=== PATIENT | female | born 1940 | race Caucasian/White ===

== ENCOUNTER 2017-11-22 21:18 | Inpatient (IN) ==
[2017-11-22 22:05] LABS: Bilirubin,Urine Negative (Negative); Blood,Urine Negative (Negative); Clarity,Urine Clear (Clear); Color,Urine Yellow (Yellow); Glucose,Urine (UA) Normal (Normal); Ketones,Urine >=160 mg/dL (Negative); Leukocyte Esterase,Urine Small (Negative); Nitrite,Urine Negative (Negative); Protein,Urine Negative (Neg-Trace); Specific Gravity,Urine 1.017 (1.010-1.025); Urobilinogen,Urine Normal (Normal)
[2017-11-22 22:08] LABS: Bacteria,Urine None Seen per hpf (None-Few); Hyaline Casts,Urine None Seen per lpf (None-Few); Squamous Epithelial Cell,Urine Few per lpf (None-Few); WBC,Urine 0-3 per hpf (0-3)
[2017-11-22 22:52] LABS: Basophils % 0.3 %; Hematocrit 41.5 % (35.3-44.9); Hemoglobin 13.8 g/dL (11.5-15.4); Immature Granulocytes % 0.3 % (0-4); Lymphocytes # 0.9 K/mcL (0.6-4.6); Mean Corpuscular HGB Conc 33.3 g/dL (31.6-35.5); Mean Corpuscular Hemoglobin 29.6 pg (28.0-33.3); Mean Corpuscular Volume 89.1 fL (83.0-100.0); Monocytes # 0.6 K/mcL (0.0-1.3); Monocytes % 5.1 %; Neutrophils # 10.1 K/mcL (1.6-8.9); Platelet Count 162 K/mcL (140-400); Red Blood Count 4.66 M/mcL (3.82-4.97); Red Cell Distribution Width 12.5 % (11.5-14.5); Segmented Neutrophils % 86.3 %
[2017-11-22 23:15] LABS: Alanine Aminotransferase 13 Units/L (7-52); Albumin 4.6 g/dL (3.5-5.7); Albumin/Globulin Ratio 1.5 (1.1-2.2); Alkaline Phosphatase 97 Units/L (34-104); Amylase 37 Units/L (29-103); Aspartate Amino Transferase 19 Units/L (13-39); BUN/Creatinine Ratio 20 (6-26); Bilirubin,Direct 0.1 mg/dL (0.0-0.2); Bilirubin,Indirect 0.6 mg/dL (0.0-1.2); Bilirubin,Total 0.7 mg/dL (0.3-1.0); Blood Urea Nitrogen 13 mg/dL (8-23); Calcium 10.3 mg/dL (8.6-10.3); Carbon Dioxide 25 mEq/L (23-29); Chloride 102 mEq/L (98-107); Globulin 3.1 g/dL (2.4-3.5); Glucose 124 mg/dL (70-105); Lipase 11 Units/L (11-82); Osmolality,Calculated 284 (280-300); Potassium 3.9 mEq/L (3.5-5.1); Sodium 136 mEq/L (136-145); Total Protein 7.7 g/dL (6.4-8.9); eGFR For Non-African Americans > 60 (> 60)
--- NOTE | 2017-11-22 23:49 | Emergency Department Note ---
Disposition Clinical Impression: Appendicitis, acute Qualifiers: Acute appendicitis type: unspecified acute appendicitis type Qualified Code(s) : K35.80 - Unspecified acute appendicitis Disposition: Admitted As Inpatient General Adult HPI - General Chief complaint: ED Abdominal Pain Stated complaint: ab pain Time Seen by Provider: 11/22/17 23:24 Source: patient Mode of arrival: private vehicle Limitations: no limitations Nursing Notes Reviewed: Yes Vital Signs Reviewed: Yes - History of Present Illness HPI Narrative: This is a 77-year-old female with past medical history including ulcerative colitis that is not active, cholelithiasis, presenting with a chief complaint of right-sided abdominal pain. Patient states she woke up generally not feeling well. After lunch today she started feeling nauseous, but no vomiting. Approximately 8 hours ago she developed right flank pain that is sharp and worsens with movement. Throughout the day it is been gradually getting worse and now radiates into the right lower quadrant and down her right groin. She denies dysuria, hematuria, abnormal bowel movements, chest pain, shortness breath. She has never experienced this pain before. Pain Scale: 8 - Related Data Allergies Allergy/AdvReac Type Severity Reaction Status Date / Time No Known Allergies Allergy Verified 11/22/17 21:44 All systems ED: reviewed and negative except as stated. Review of Systems: As Per HPI Constitutional: Reports: chills. Denies: fever Eyes: Denies: vision change ENT ED: Denies: throat pain, congestion Cardiovascular: Denies: chest pain, palpitations Respiratory: Denies: cough, dyspnea, wheezes Gastrointestinal: Reports: abdominal pain, nausea. Denies: vomiting, diarrhea, constipation Genitourinary: Denies: urgency, dysuria, frequency, hematuria, discharge Integumentary: Denies: rash Neurological: Denies: headache, weakness Allergic/Immunologic: Denies: itchy eyes Past Medical History - Past Medical History Attestation: Yes The following information was validated with the patient. Source: patient Medical history: Reports: other Psychiatric history: Reports: no psych history - Social History Smoking Status: Never smoker Alcohol use: Reports: none Drug use: Reports: none Physical Exam - General Limitations: no limitations General appearance: alert, in no apparent distress - Head Head exam: atraumatic, normocephalic - Eye Eye exam: Present: normal appearance, EOMI - ENT ENT exam: normal exam, mucous membranes moist - Respiratory Respiratory exam: Present: normal lung sounds bilaterally. Absent: respiratory distress, wheezes - Cardiovascular Cardiovascular exam: Present: regular rate, normal rhythm, normal heart sounds, other (Bilateral radial pulses are equal. No lower extremiy swelling) - Abdominal Exam Abdominal exam: Present: soft, tenderness, normal bowel sounds. Absent: distention, guarding, rebound, rigidity Abdominal tenderness: Present: RUQ, RLQ, mild - Extremities Exam Extremities exam: Absent: tenderness, calf tenderness - Neurological Exam Neurological exam: Present: alert, oriented X3, CN II-XII intact - Psychiatric Psychiatric exam: Present: normal affect, normal mood - Skin Skin exam: Present: warm, dry, intact. Absent: diaphoresis, pallor Course Vital Signs Temperature 98.2 F 11/22/17 21:40 Pulse Rate 81 11/22/17 21:40 Respiratory Rate 16 11/22/17 21:40 Blood Pressure 146/73 11/22/17 21:40 O2 Sat by Pulse Oximetry 98 11/22/17 21:40 Temperature 98.2 F 11/22/17 21:40 Pulse Rate 82 11/23/17 01:50 Respiratory Rate 19 11/23/17 01:50 Blood Pressure 123/59 11/23/17 01:50 O2 Sat by Pulse Oximetry 98 11/23/17 01:50 Oxygen Delivery Oxygen Delivery Room Air Medical Decision Making - [facility] Narrative Medical decision making narrative: Patient presenting with right-sided abdominal pain and some nausea. Vitals are stable. She is afebrile. We will further evaluate with CBC, BMP, hepatic panel , lipase, urinalysis. Patient has never had this pain before. No history of kidney stones. She has a known history of gallstones that have never given her a few in the past. We will obtain CT abdomen and pelvis without contrast for further evaluation. We will give Tylenol for pain. 11:55 Urinalysis with microscopic red blood cells, small leukocyte esterase, ketones. This is sent for culture. Labs reviewed. No leukocytosis, no electrolyte abnormalities. LFTs and bilirubin is within normal limits. Unlikely this is related to her gallbladder. No evidence of acute kidney injury. Lipase is also normal. 12:35 CT reviewed. Patient has acute appendicitis, no rupture. 17mm dilated. We will give her zosyn, IVFs. She will remain NPO. We will give her IV fentanyl and Zosyn for further pain management. 12:44 Discussed with general surgery, Dr. Velazquez, who will accept the patient. He will contact bed management. - Medical Records Medical records reviewed: Yes I reviewed the patient's medical records. - Lab Data Lab results reviewed: Yes I reviewed the patient's lab results. Result diagrams: 11/22/17 21:45 11/22/17 21:45 Lab Results 11/22/17 11/22/17 11/22/17 Range/Units 21:45 21:45 21:52 WBC 11.7 H (4.3-11.1) K/mcL RBC 4.66 (3.82-4.97) M/mcL Hgb 13.8 (11.5-15.4) g/dL Hct 41.5 (35.3-44.9) % MCV 89.1 (83.0-100.0) fL MCH 29.6 (28.0-33.3) pg MCHC 33.3 (31.6-35.5) g/dL RDW 12.5 (11.5-14.5) % Plt Count 162 (140-400) K/mcL MPV 11.0 (9.4-12.4) fL Immature Gran % 0.3 (0-4) % Seg Neutrophils % 86.3 % Lymphocytes % 8.0 % Monocytes % 5.1 % Eosinophils % 0.0 % Basophils % 0.3 % Neutrophils # 10.1 H (1.6-8.9) K/mcL Lymphocytes # 0.9 (0.6-4.6) K/mcL Monocytes # 0.6 (0.0-1.3) K/mcL Eosinophils # 0.0 (0.0-0.6) K/mcL Basophils # 0.0 (0.0-0.2) K/mcL Sodium 136 (136-145) mEq/L Potassium 3.9 (3.5-5.1) mEq/L Chloride 102 (98-107) mEq/L Carbon Dioxide 25 (23-29) mEq/L BUN 13 (8-23) mg/dL Creatinine 0.66 (0.60-1.20) mg/dL Est GFR ( Amer) > 60 (> 60) Est GFR (Non-Af Amer) > 60 (> 60) BUN/Creatinine Ratio 20 (6-26) Glucose 124 H (70-105) mg/dL Calculated Osmolality 284 (280-300) Calcium 10.3 (8.6-10.3) mg/dL Total Bilirubin 0.7 (0.3-1.0) mg/dL Direct Bilirubin 0.1 (0.0-0.2) mg/dL Indirect Bilirubin 0.6 (0.0-1.2) mg/dL AST 19 (13-39) Units/L ALT 13 (7-52) Units/L Alkaline Phosphatase 97 (34-104) Units/L Serum Total Protein 7.7 (6.4-8.9) g/dL Albumin 4.6 (3.5-5.7) g/dL Globulin 3.1 (2.4-3.5) g/dL Albumin/Globulin Ratio 1.5 (1.1-2.2) Amylase 37 (29-103) Units/L Lipase 11 (11-82) Units/L Urine Color Yellow (Yellow) Urine Clarity Clear (Clear) Urine pH 6.0 (5.0-8.0) pH Units Ur Specific [place] 1.017 (1.010-1.025) Urine Protein Negative (Neg-Trace) mg/dL Urine Glucose (UA) Normal (Normal) mg/dL Urine Ketones >=160 H (Negative) mg/dL Urine Blood Negative (Negative) Urine Nitrite Negative (Negative) Urine Bilirubin Negative (Negative) Urine Urobilinogen Normal (Normal) mg/dL Ur Leukocyte Esterase Small H (Negative) Urine Microscopic RBC 5-15 H (0-3) per hpf Urine Microscopic WBC 0-3 (0-3) per hpf Ur Squamous Epith Cells Few (None-Few) per lpf Urine Bacteria None Seen (None-Few) per hpf Hyaline Casts None Seen (None-Few) per lpf Ur Culture Indicated? YES A (NO) - Radiology Data Radiology results reviewed: Yes I reviewed the patient's radiology results. Abdomen/Pelvis CT 11/22/17 23:37 IMPRESSION: Acute appendicitis. Diverticulosis coli and cholelithiasis. D/ / Anand Flood MD / Anand Flood MD Interpreting Provider: Anand Flood MD Attestation Statement - Attestation Attestation: I examined this patient and my medical decision-making was reviewed with the Resident Physician, Dr. Wu. I agree with the documented findings, disposition and treatment plan as described except to the extent set forth below. Patient is a 77-year-old white female who is brought in today by family for evaluation of right-sided abdominal pain and flank pain that began approximately 8 hours ago. Patient states pain is gradually worsened and has now moved to be most prominent in the right side of the abdomen. Patient denies any chest pain or heaviness, no shortness of breath, no preceding cough or URI symptoms, no fevers or chills no history of falls or trauma. Patient denies any bowel changes, but does mention history of ulcerative colitis in the past. I agree with patient's physical exam findings as documented. On my assessment patient with mild tenderness to palpation in the right mid and right lower quadrant of the abdomen without peritoneal signs. Vital signs are stable. Patient received Tylenol initially, had laboratory evaluation and CT abdomen and pelvis without contrast. Patient's labs show a leukocytosis and CT shows acute appendicitis without perforation or abscess. Case was discussed with Dr. velazquez his materials planner/production planner for surgery who accepted the patient to his service patient was made nothing by mouth and IV antibiotics were initiated as well as IV fluids. Patient remains hemodynamically stable and no significant change in the level of her pain.
[2017-11-23] MEDS ORDERED: Piperacillin/Tazobactam 3.375 GM in 0.9 % Sodium Chloride Mini Bag 100 ML IVPB ONE (00:34)
[2017-11-23] MEDS ORDERED: 0.9 % Sodium Chloride 500 ML IVC ONE (00:42)
[2017-11-23] MEDS ORDERED: *HR* FentaNYL (PF) 100 MCG/2 ML VIAL IVP ONE (00:47)
[2017-11-23] MEDS ORDERED: Ondansetron 4 MG/2 ML VIAL IVP ONE (00:47)
[2017-11-23] MEDS ORDERED: Ondansetron 4 MG/2 ML VIAL IVP PRN ×3 (03:18→19:26)
[2017-11-23] MEDS: *HR* OxyCODONE Immed Rel 5 MG TABLET PO PRN ×2 (04:06→10:38)
[2017-11-23] MEDS: Ringers Solution, Lactated 1,000 ML IVC SCH ×2 (04:06→19:33)
[2017-11-23] MEDS: Piperacillin/Tazobactam 3.375 GM in 0.9 % Sodium Chloride Mini Bag 100 ML IVPB SCH ×3 (07:57→21:56)
[2017-11-23] MEDS ORDERED: APRISO PO SCH (09:00)
--- NOTE | 2017-11-23 14:15 | General Surg History&Physical ---
Date of Encounter: 11/23/17 Time of Encounter: 14:35 History of Present Illness Chief complaint: Acute onset right lower quadrant abdominal pain, acute appendicitis HPI: Ms. Pollock is a 77 year old female referred for further evaluation and treatment after presenting to the emergency department with abrupt onset right lower quadrant abdominal pain approximately 1300 hrs. on 11/22/17. Symptoms have progressed in severity. The patient has been nauseous and anorexic since the onset of symptoms. There was no vomiting, fevers, chills, or diarrhea. Patient presented to the emergency department for further evaluation and treatment. Laboratories were notable for a leukocytosis of 11.7 with 10.1 neutrophils. Hemoglobin was 13.8, hematocrit 41.5, platelets 162,000. Electrolytes, BUN, creatinine were within normal limits. LFTs were also within normal limits. Urinalysis was notable for ketones greater than equal to 160 - otherwise fairly unremarkable urinalysis. CT abdomen and pelvis demonstrated a thick walled appendix with significant periappendiceal inflammation consistent with acute appendicitis. Surgical services were contacted, the patient was admitted for IV fluids, IV antibiotics, and possible surgery. Past medical history: Ulcerative colitis Surgical history: Tonsillectomy as a child; bilateral breast reduction, 2006. Allergies: No known drug Medications: Appriso 375 mg 4 tablets every morning Aspirin 81 mg by mouth daily [place]-3 fish oil Social history: Patient has never smoked; she admits to a rare alcoholic beverage; she denies any illicit drug use. The patient is G2, P2 Family history: Daughter with hypertrophic cardiomyopathy with obstruction requiring open heart surgery Physical examination: Age-appropriate woman appears to be in no acute distress; she is resting comfortably in her hospital bed. Maximum temperature 99.0, pulse 72 and regular, respirations 17, blood pressure 92/51 - 110/56 The patient is 1.5 cm tall, 60.1 kg; BMI 20 4. Skin: Warm, no obvious jaundice Lungs: Clear bilaterally; minimal right lower quadrant abdominal pain and deep inspiration Cardiac: Rate was regular (patient gives a history of irregular heart rate); soft, 2/6 systolic murmur Abdomen: Soft, with tenderness in the right lower quadrant. Minimal left lower quadrant tenderness (Rovsing sign) No detected intra-abdominal masses. No rebound. Hypoactive bowel soft Extremities: No obvious clubbing, cyanosis, or edema. CT: Reviewed with [facility] Labs: Reviewed Impression: 77-year-old female with abrupt onset right lower quadrant abdominal pain as of approximately 1300 hrs., 11/22/17. Clinical findings, labs and radiologic studies consistent with acute appendicitis. Treatment options include surgical intervention (appendectomy) versus medical management of IV fluids, pain control, and IV antibiotics. The risks and benefits of both options were discussed in detail. The patient has decided to proceed with surgery. The patient's daughter, in attendance, agreed with this decision. Risks of surgery include hemorrhage, infection, injury to adjacent structures such as small bowel, colon, bladder, and ureters. The history of ulcerative colitis may increase the risk of acute perforation during the surgery prompting conversion to an open oratory celiotomy. Attempted to answer all questions. The patient expressed understanding. Surgical consent obtained. We will proceed JEFF Past Med Surg Social Fam HX - Past Medical History Medical history: other Additional medical history: Ulcerative Collitits Psychiatric history: no psych history - Past Surgical History Additional surgical history: breast reduction, Tonsils removed - Social History Smoking Status: Never smoker Smokeless Tobacco Status: No Alcohol use: none Drug use: none - Family History Father Hx Family Cardiac Disorders: Yes Hx Family Endocrine Disorder: Yes (DM) Mother Hx Family Neurologic Disorders: Yes (Stroke) Daughter Hx Family Cardiac Disorders: Yes Medications and Allergies Aspirin [Lo-Dose Aspirin EC] 81 mg PO DAILY 11/23/17 [History] Fish Oil/Dha/Epa [Fish Oil 1,200 mg Fish Oil] 2 cap PO DAILY 11/23/17 [History] L. Acidophilus/Pectin, [place] [Acidophilus Capsule] 1 cap PO DAILY 11/23/17 [ History] Mesalamine [Apriso] 1.5 gm PO DAILY 11/23/17 [History] Multivitamin/Iron/Folic Acid [Centrum Women Tablet] 1 tab PO DAILY 11/23/17 [ History] 3 Allergy/AdvReac Type Severity Reaction Status Date / Time No Known Allergies Allergy Verified 11/23/17 08:26 Review of Systems All systems PM: The remainder of the systems were reviewed and are negative General Surgery Exam Initial Vital Signs Temp Pulse Resp BP Pulse Ox 98.2 F 81 16 146/73 98 11/22/17 21:40 11/22/17 21:40 11/22/17 21:40 11/22/17 21:40 11/22/17 21:40 Results - Labs 11/22/17 21:45 11/22/17 21:45 Abnormal lab results WBC 11.7 K/mcL (4.3-11.1) H 11/22/17 21:45 Neutrophils # 10.1 K/mcL (1.6-8.9) H 11/22/17 21:45 Glucose 124 mg/dL (70-105) H 11/22/17 21:45 Urine Ketones >=160 mg/dL (Negative) H 11/22/17 21:52 Ur Leukocyte Esterase Small (Negative) H 11/22/17 21:52 Urine Microscopic RBC 5-15 per hpf (0-3) H 11/22/17 21:52 Ur Culture Indicated? YES (NO) A 11/22/17 21:52 All other labs normal.
--- NOTE | 2017-11-23 15:20 | Anesthesia Evaluation PreOp ---
Date of Encounter: 11/23/17 Time of Encounter: 15:15 - Past History Planned Operation: lap appy Cardiac History: Other (Patient has an abnormal EKG, found in 2005- on routine exam. Followed by cardiology, felt EKG abnormality due to abnormal cardiac position in chest. Not true dextrocardia but some degree of rotation on an abnormal axis. Her cardiac function is normal. Exercises at gyme 4x/week, weight ligts.) Pulmonary History: Denies Any Significant HX DIRECTOR [employer] History: Denies Any Significant HX Other Medical History: Denies Any Significant HX Anesthesia History: No Prior Anesthetic Complications, Past Anesthesia Alcohol Use: none Drug use: none Medications and Allergies Aspirin [Lo-Dose Aspirin EC] 81 mg PO DAILY 11/23/17 [History] Fish Oil/Dha/Epa [Fish Oil 1,200 mg Fish Oil] 2 cap PO DAILY 11/23/17 [History] L. Acidophilus/Pectin, [place] [Acidophilus Capsule] 1 cap PO DAILY 11/23/17 [ History] Mesalamine [Apriso] 1.5 gm PO DAILY 11/23/17 [History] Multivitamin/Iron/Folic Acid [Centrum Women Tablet] 1 tab PO DAILY 11/23/17 [ History] 3 Allergy/AdvReac Type Severity Reaction Status Date / Time No Known Allergies Allergy Verified 11/23/17 08:26 - Meds/Allergy Pre-op Review Medications Reviewed: Yes Allergies Reviewed: Yes Beta Blockers on Current Med List: No Anesthesia Results - Labs 11/22/17 21:45 11/22/17 21:45 - Imaging EKG: other (see note) Anesthesia Exam Selected Entries 11/23/17 10:52 Temperature 99.0 F Pulse Rate 72 Respiratory Rate 17 Blood Pressure 92/51 O2 Sat by Pulse Oximetry 92 Weight: 60 kg NPO (# of Hours): over 8 hours - HEENT Pupil (Motor): Pupils equal Mallampati: II Teeth: Normal Oral Opening: Less than or equal to 3 (Small oral opening) - Cardiac Rhythm: Regular Murmur: None - Pulmonary Breath Sounds: bilateral Clear Respiratory Effort: Symmetrical Anesthesia Assess/Plan ASA Score: 2 Modified [place] Scale for Level of Consciousness: Cooperative, oriented, and tranquil Anesthetic Plan: General Monitoring Plan: Standard Monitors Recovery Plan: PACU (Discussed GA, risks. Agreed to proceed.)
[2017-11-23] MEDS ORDERED: *HR* FentaNYL (PF) 100 MCG/2 ML VIAL ONE (15:57)
[2017-11-23] MEDS ORDERED: *HR* Propofol 200 MG/20 ML VIAL IVP ONE (15:58)
[2017-11-23] MEDS ORDERED: *HR* Rocuronium Bromide 50 MG/5 ML VIAL ONE ×2 (16:01)
[2017-11-23] MEDS ORDERED: *HR* Succinylcholine 200 MG/10 ML VIAL IVP ONE (16:01)
[2017-11-23] MEDS ORDERED: Lidocaine -MPF 2% 2 ML VIAL ONE (16:01)
[2017-11-23] MEDS ORDERED: Bupivacaine/EPI 1:200k 0.25%PF 30 ML VIAL ONE ×2 (17:09→18:06)
[2017-11-23] MEDS ORDERED: Lacri-Lube 3.5 GM TUBE ONE (17:09)
[2017-11-23] MEDS ORDERED: Ondansetron 4 MG/2 ML VIAL ONE (17:13)
[2017-11-23] MEDS ORDERED: Dexamethasone 4 MG/ML VIAL ONE (17:13)
[2017-11-23] MEDS ORDERED: Acetaminophen IV 1,000 MG/100 ML INFUS..BTL ONE (17:17)
[2017-11-23] MEDS ORDERED: Neostigmine Methylsulfate 3 MG/3 ML SYRINGE ONE (17:23)
[2017-11-23] MEDS ORDERED: *HR* Meperidine 25 MG/ML SYRINGE IVP PRN (18:39)
[2017-11-23] MEDS ORDERED: *HR* Morphine 2 MG/ML SYRINGE IVP PRN (18:39)
--- NOTE | 2017-11-23 19:20 | Operative Note ---
Date of procedure: 11/23/17 Pre-op diagnosis: Acute appendicitis Post-op diagnosis: same Procedure: Laparoscopy, open right colectomy Complications: None apparent Anesthesia: GETA Local Anesthetics: 0.25% Sensorcaine HCL with Epinephrine 1:200,000 SubQ (cc) ( 60 mL) Surgeon: Nabeel Velazquez Was there an cancer genetics assistant present: No Estimated blood loss (cc): 25 IV fluids (cc): 1,300 Specimen: right colon with attached appendix Condition: stable Disposition: PACU Procedure in Detail: Brief history 77-year-old female admitted after presenting early this morning with abrupt onset right lower quadrant abdominal pain. Clinical findings, labs , and CT were consistent with acute appendicitis for which surgery is planned. Complete history and physical available for inspection Technique: The patient was brought to the operating room and placed supine on the procedure table. The patient was appropriately identified as to person and procedure. The patient was then intubated and anesthetized under the supervision of Dr. Elaine Ortiz. The abdomen was prepped and draped in usual sterile fashion. The appendix was not palpable in the abdomen was examined under anesthesia. Several milliliters of 0.25% bupivacaine with 1-200, 000 units epinephrine was infiltrated into the infraumbilical skin. The dissection was extended to the fascia. Additional bupivacaine with epinephrine was infiltrated into the fascia before it was grasped, elevated, and incised. An 11 mm Xcel port was established. The rigid laparoscope was placed within the obturator to visualize passage through the layers of the anterior abdominal wall. Once the abdominal cavity was accessed, the obturator was replaced by the rigid laparoscope, the abdomen was insufflated with gaseous carbon dioxide. There was no obvious visible injury from establishing the port. The 5 mm port was established in the midline suprapubic abdomen and a 12 mm port established in the right lower quadrant midclavicular line. Each of these sites was infiltrated with several milliliters of 0.25% bupivacaine with 1-200, 000 units of epinephrine. The cecum was identified and elevated. The anterior tinea was followed to the proximal end of the cecum. It was not possible to identify the appendix which appeared to be densely adherent to the terminal ileum. This difficulty persisted despite efforts to dissect the 2 structures apart. I eventually abandoned the laparoscopic approach. The pneumoperitoneum was evacuated and the instrumentation removed. Bleich skin incision beginning just to the right of midline cephalad to the umbilicus extending to the right lateral anterior abdomen was planned. Several milliliters of 0.25% bupivacaine with 1-200,000 units of epinephrine was infiltrated in the skin. The skin was incised. The fascia of the anterior rectus sheath was incised. The right rectus abdominis muscle divided with electrocautery. The posterior rectus sheath was grasped with 2 curved Brunilda clamps and elevated. The abdomen was entered atraumatically. The cecum was exteriorized. The dense adhesions of appendix to the terminal ileum and a concern for injury to the terminal ileum prompted me to perform a right colectomy. Just proximal to the adherent appendix, the ileum was transected with an Ethicon 75 mm linear cutter. A second application of the Ethicon 75 mm linear cutter was used to transect the descending colon. The mesoappendix was divided with the aid of a [employer] Impact dissector. The appendiceal and right colic vessels were transected between curved hemostats and ligated with 3-0 silk. The specimen with the attached appendix was removed and sent to pathology. The small bowel was placed alongside the a sending colon and approximated there with interrupted 3- 0 silk. A stapled side to side, functional end to end ileocolic anastomosis was created with the Ethicon 75 mm linear cutter. The ends of the bowel were approximated with interrupted 3-0 silk followed by application of an Ethicon [place] 60 mm stapler. The staple lines appeared to be intact. The bowel was returned to its usual anatomic location. Stasis appeared adequate. The posterior rectus sheath was closed with the peritoneum using running interlocking 0 Vicryl. This layer was infiltrated with several milliliters of 0.25% bupivacaine with 1-200,000 epinephrine. The anterior rectus sheath was approximated with interrupted [id number] of 0 Vicryl and infiltrated with the bupivacaine with epinephrine solution. Subcutaneous tissue was approximated with running 3-0 Vicryl. The skin edges were approximated with autumn after infiltrating the edges with additional bupivacaine with epinephrine solution. The fascia of the infraumbilical port was closed with interrupted [id number] 0 Vicryl using S retractors. The skin edges of the ports were approximated with autumn. Dry sterile dressings were applied. The patient was taken to recovery in stable condition. Needle, sponge, and instrument counts were correct at the close of the case.
[2017-11-23] MEDS ORDERED: *HR* OxyCODONE Immed Rel 5 MG TABLET PO PRN (19:26)
--- NOTE | 2017-11-23 20:45 | Anesthesia Evaluation Post Op ---
Date of Encounter: 11/23/17 Time of Encounter: 19:20 - Discharge PostOp Status: Transfer Patient to floor (Patient's vital signs have been reviewed. Patient is stable postoperatively and has adequately recovered from anesthesia. Patient is determined to have stable airway patency and respiratory function including respiratory rate and oxygen saturation. Patient has a stable heart rate, blood pressure and adequate hydration. Patients mental status is acceptable. Patients temperature is appropriate. Pain and nausea are adequately controlled.?)
[2017-11-24] MEDS: Acetaminophen 325 MG TABLET PO PRN ×2 (01:28→09:29)
[2017-11-24] MEDS: Piperacillin/Tazobactam 3.375 GM in 0.9 % Sodium Chloride Mini Bag 100 ML IVPB SCH ×2 (04:11→12:25)
[2017-11-24] MEDS: Ringers Solution, Lactated 1,000 ML IVC SCH ×2 (04:12→05:15)
[2017-11-24 06:00] LABS: Basophils % 0.1 %; Hematocrit 34.5 % (35.3-44.9); Immature Granulocytes % 0.5 % (0-4); Lymphocytes # 0.8 K/mcL (0.6-4.6); Lymphocytes % 6.6 %; Mean Corpuscular HGB Conc 32.5 g/dL (31.6-35.5); Mean Corpuscular Hemoglobin 29.6 pg (28.0-33.3); Mean Corpuscular Volume 91.3 fL (83.0-100.0); Mean Platelet Volume 11.5 fL (9.4-12.4); Monocytes # 0.8 K/mcL (0.0-1.3); Monocytes % 6.9 %; Neutrophils # 10.4 K/mcL (1.6-8.9); Platelet Count 126 K/mcL (140-400); Red Blood Count 3.78 M/mcL (3.82-4.97); Red Cell Distribution Width 12.6 % (11.5-14.5); Segmented Neutrophils % 85.9 %
[2017-11-24 06:01] LABS: Hemoglobin 11.2 g/dL (11.5-15.4)
[2017-11-24] MEDS: APRISO PO SCH (09:20)
[2017-11-24] MEDS ORDERED: Ringers Solution, Lactated 1,000 ML IVC SCH (12:27)
[2017-11-24] MEDS ORDERED: *HR* OxyCODONE Immed Rel 5 MG TABLET PO PRN (12:27)
--- NOTE | 2017-11-24 12:30 | General Surgery Progress Note ---
Date of Encounter: 11/24/17 Time of Encounter: 12:28 Subjective Patient reports: feels better Narrative: General Surgery - POD #1 Patient doing well; experiencing only moderate incisional pain; preoperative right lower quadrant abdominal pain is almost completely resolved Patient has remained afebrile, maximum temperature 99.0 through the night; pulse 73, respirations 14, blood pressure 116/55 SPO2 on room air 93-96%. Lungs: Clear; no abdominal pain on deep inspiration Cardiac: Regular rate, stable, soft, 2/6 systolic murmur Abdomen: Soft; active bowel sounds and patient reports flatus. Minimal tenderness particularly around the oblique incision anterior abdomen Incisions intact and healing well. Dressings remote Urine output: Approximately 850 mL so far today Labs: White count 12.1, hemoglobin 11.2 with hematocrit 34.5. Platelet count 126,000. - The noted changes in the H&H and platelet count is likely due to surgery and hydration. The white count is most likely reactive to surgery. The lab work is expected to normalize with reduction of IV fluids and continued recovery. Operative pathology: Pending Impression: Postoperative day 1, status post laparoscopy, open right colectomy. Susceptible postoperative status. Plan: Begin clear liquid diet Reduce IV fluids Discontinue IV antibiotics. Objective Vital Signs - Last 8 Hours Temp Pulse Resp BP Pulse Ox 11/24/17 11:45 98.5 F 73 14 116/55 96 11/24/17 06:24 98.6 F 72 15 105/56 93 Intake and Output 11/23/17 11/24/17 11/24/17 23:59 07:59 15:59 Intake Total 800 / 800 0 / 0 Output Total 650 / 650 200 / 200 Balance 150 / 150 -200 / -200 Intake: IV Fluids 100 / 100 Zosyn 3.375 GM In 0.9 % Sodium 100 / 100 Chloride (Mini-Bag +) 100 ML @ 25 mls/hr IVPB Q8H [facility] Rx#: [id number] Oral 700 / 700 0 / 0 Output: Urine 650 / 650 200 / 200 Other: Meal NPO for breakfast Weight 60 kg Blood Glucose* 124 105 83 Patient Weight 11/24/17 23:59 Weight 60 kg - Labs 11/24/17 05:32 11/22/17 21:45 Consult Discharge Plan - Plan Referrals: Nabeel Velazquez MD [Non-Partnered Physician] - Ramón Hackett Jr, MD [Primary Care Provider] -
[2017-11-24] MEDS: Ondansetron 4 MG/2 ML VIAL IVP PRN (20:59)
[2017-11-25] MEDS: Ondansetron 4 MG/2 ML VIAL IVP PRN (01:01)
[2017-11-25 06:25] LABS: Basophils % 0.2 %; Hematocrit 37.3 % (35.3-44.9); Hemoglobin 12.4 g/dL (11.5-15.4); Immature Granulocytes % 0.5 % (0-4); Lymphocytes # 0.9 K/mcL (0.6-4.6); Lymphocytes % 8.6 %; Mean Corpuscular HGB Conc 33.2 g/dL (31.6-35.5); Mean Corpuscular Hemoglobin 30.2 pg (28.0-33.3); Mean Platelet Volume 11.4 fL (9.4-12.4); Monocytes # 0.8 K/mcL (0.0-1.3); Monocytes % 7.7 %; Neutrophils # 8.8 K/mcL (1.6-8.9); Platelet Count 164 K/mcL (140-400); Red Cell Distribution Width 12.5 % (11.5-14.5)
--- NOTE | 2017-11-25 09:39 | General Surgery Progress Note ---
Date of Encounter: 11/25/17 Time of Encounter: 09:34 Subjective Patient reports: feels better, tolerating liquids well Narrative: General Surgery - POD #2 Feeling much improved this morning, however, experienced significant cramping abdominal pain in the right lower quadrant during the night. This AM patient c/o mild ot moderate right upper quadrant abdominal pain. No fevers, chills, nausea or vomiting; hemodynamically stable - pulse 83-91; respirations 14-17, blood pressure 106/56 - 126/67 Lungs clear to auscultation; no abd pain with inspiration Abdomen: Soft, minimal yuri-incisional pain; obvious rebound; active bowel sounds. BM early this morning Urine output: Approximately 1300 mL in the last 24 hours Laboratories: Leukocytosis resolved, 10.6; minimal globin 12.4 with hematocrit 37.3. Platelet count 164,000. Operative pathology - pending Impression: Postoperative day #2 status post laparoscopy converted to open right colectomy Acceptable postoperative status anemia and thrombocytopenia - resolved as the diminished H&H likely due to yuri operative fluids (dilution) Plan: Full liquid diet, advance as tolerated Monitor for recurrent abdominal complaints / cramping abd pain Encourage activity at bed Discontinue IV fluids Objective Vital Signs - Last 8 Hours Temp Pulse Resp BP Pulse Ox 11/25/17 07:42 98.7 F 91 14 106/56 97 11/25/17 03:17 98.2 F 87 17 126/67 93 Intake and Output 11/24/17 11/25/17 11/25/17 23:59 07:59 15:59 Intake Total 250 / 250 240 / 240 Output Total 450 / 450 100 / 100 Balance -200 / -200 -100 / -100 240 / 240 Intake: Oral 250 / 250 240 / 240 Output: Urine 450 / 450 0 / 0 Emesis 100 / 100 Other: Meal Clears Breakfast Percent of Meal Consumed 0% Stool Size Small Stool Consistency loose Stool Color Brown Blood Tinged # Voids 1 Weight 64 kg Patient Weight 11/25/17 23:59 Weight 64 kg - Labs 11/25/17 05:52 11/22/17 21:45 Consult Discharge Plan - Plan Referrals: Nabeel Velazquez MD [Non-Partnered Physician] - Ramón Hackett Jr, MD [Primary Care Provider] -
[2017-11-25] MEDS: APRISO PO SCH (12:19)
[2017-11-25 16:38] LABS: Hemoglobin 12.6 g/dL (11.5-15.4)
[2017-11-26 07:34] LABS: Basophils % 0.5 %; Eosinophils % 0.3 %; Hematocrit 34.3 % (35.3-44.9); Hemoglobin 11.2 g/dL (11.5-15.4); Immature Granulocytes % 0.3 % (0-4); Lymphocytes # 1.7 K/mcL (0.6-4.6); Lymphocytes % 26.2 %; Mean Corpuscular HGB Conc 32.7 g/dL (31.6-35.5); Mean Corpuscular Hemoglobin 29.7 pg (28.0-33.3); Mean Platelet Volume 11.5 fL (9.4-12.4); Monocytes # 0.6 K/mcL (0.0-1.3); Monocytes % 9.7 %; Neutrophils # 4.1 K/mcL (1.6-8.9); Platelet Count 157 K/mcL (140-400); Red Blood Count 3.77 M/mcL (3.82-4.97); Red Cell Distribution Width 12.2 % (11.5-14.5)
[2017-11-26] MEDS: APRISO PO SCH (08:11)
[2017-11-26 11:37] VITALS: BP 100/61
[2017-11-26] MEDS ORDERED: *HR* OxyCODONE/APAP 5/325 TABLET PO PRN (12:59)
--- NOTE | 2017-11-26 13:05 | General Surgery Progress Note ---
Date of Encounter: 11/26/17 Time of Encounter: 13:00 Subjective Patient reports: feels better Narrative: General Surgery - POD #3 Patient feeling well; remains afebrile, maximum temperature in the last 24 hours 99 5. Pulse 94 (ranged 77-101); respirations 16, blood pressure 100/61. SPO2 on room air 97% Lungs: Clear Cardiac: Current rate regular, no appreciable murmur Abdomen: Soft, minimal right lower quadrant incisional pain. All incisions intact and healing well. No detected fascial defects Significant intra-abdominal masses, no peritoneal signs or rebound. Active bowel sounds. Patient has passed a small amount of blood per rectum but this is likely due to the surgical resection and stapled anastomosis Hemoglobin has essentially remained stable at 11.2 and 34.0. Differential also within normal limits. Impression: A 77-year-old female, status post laparoscopy converted to open right colectomy after presenting to [facility] ED with abrupt onset right lower quadrant abdominal pain with signs and symptoms consistent with acute appendicitis. At the time of surgery enlarged appendix densely adherent to the terminal ileum was encountered. Was necessary to complete a right colectomy to address this acute inflammatory mass. Postoperatively the patient has remained hemodynamically stable with an acceptable postoperative recovery. Patient remains afebrile, hemodynamically stable. Tolerating regular diet Plan: Discharge home with outpatient follow-up, , 11/29/17. Regular diet Activity as tolerated; no lifting more than 20 pounds Patient may shower, wash incision with soap and water Tylenol as needed for pain Prescription for Percocet 5/325, #12, one every 6 hours as needed for pain not relieved by Tylenol. Operative pathology still pending. Will review with the patient when the pathology report is available Objective Vital Signs - Last 8 Hours Temp Pulse Resp BP Pulse Ox 11/26/17 11:33 99.5 F 94 16 100/61 97 11/26/17 07:56 98.7 F 82 16 106/63 95 Intake and Output 11/25/17 11/26/17 11/26/17 23:59 07:59 15:59 Intake Total 760 / 760 0 / 0 Output Total 0 / 0 Balance 760 / 760 0 / 0 Intake: Oral 760 / 760 0 / 0 Output: Urine 0 / 0 Other: Meal Dinner Percent of Meal Consumed 25% Stool Size Large Stool Consistency liquid Stool Color Bright Red Blood Dark Red Blood # Voids 1 1 # Bowel Movements 0 Weight 63.6 kg Patient Weight 11/26/17 23:59 Weight 63.6 kg - Labs 11/26/17 06:51 11/22/17 21:45 Consult Discharge Plan - Plan Referrals: Nabeel Velazquez MD [Non-Partnered Physician] - Ramón Hackett Jr, MD [Primary Care Provider] -
--- NOTE | 2017-11-26 13:11 | Discharge Summary ---
Outpatient Proc Discharge Plan - Plan Additional Instructions: Regular diet Activity as tolerated; lifting limited to less than 20 Patient may shower, wash incisions with soap and water Patient to resume home meds Tylenol 650 mg by mouth every 6 hours as needed for pain Prescription for Percocet 5/325, #12, one every 6 hours as needed for pain not relieved by Tylenol or other [id number] medications Outpatient follow-up my office, , 11/29/17 Prescriptions: OxyCODONE/APAP 5/325 [Percocet 5/325 MG] 1 each PO Q6H PRN 3 Days #12 tablet PRN Reason: Pain Home Medications: Aspirin [Lo-Dose Aspirin EC] 81 mg PO DAILY 11/23/17 [History] Fish Oil/Dha/Epa [Fish Oil 1,200 mg Fish Oil] 2 cap PO DAILY 11/23/17 [History] L. Acidophilus/Pectin, [place] [Acidophilus Capsule] 1 cap PO DAILY 11/23/17 [ History] Mesalamine [Apriso] 1.5 gm PO DAILY 11/23/17 [History] Multivitamin/Iron/Folic Acid [Centrum Women Tablet] 1 tab PO DAILY 11/23/17 [ History] Acetaminophen [Tylenol] 650 mg PO Q6HR PRN tablet 11/26/17 [Rx] OxyCODONE/APAP 5/325 [Percocet 5/325 MG] 1 each PO Q6H PRN 3 Days #12 tablet [Rx] Patient Taking Own Medication 4 each PO DAILY each 11/26/17 [Rx]
== END 2017-11-26 14:54 | disposition home or self-care (01) | DRG 330 ==
LOC: 3ANU 21:18 → EMEROOARM 21:18 → 3ANU 11-23 02:49
PROVIDERS: ADMIT Surgery; ATTEND Surgery

== ENCOUNTER 2018-09-02 21:04 | Inpatient (IN) ==
[2018-09-02 21:38] LABS: Bilirubin,Urine Negative (Negative); Blood,Urine Negative (Negative); Clarity,Urine Clear (Clear); Color,Urine Yellow (Yellow); Glucose,Urine (UA) Normal (Normal); Ketones,Urine Negative (Negative); Leukocyte Esterase,Urine Small (Negative); Nitrite,Urine Negative (Negative); Protein,Urine Negative (Neg-Trace); Specific Gravity,Urine 1.021 (1.010-1.025); Urobilinogen,Urine Normal (Normal)
[2018-09-02 21:41] LABS: Bacteria,Urine None Seen per hpf (None-Few); Hyaline Casts,Urine None Seen per lpf (None-Few); RBC,Urine 0-3 per hpf (0-3); Squamous Epithelial Cell,Urine Many per lpf (None-Few)
[2018-09-02 23:40] LABS: Basophils % 0.4 %; Eosinophils % 0.1 %; Hematocrit 43.6 % (35.3-44.9); Hemoglobin 14.4 g/dL (11.5-15.4); Immature Granulocytes % 0.2 % (0-4); Lymphocytes # 1.8 K/mcL (0.6-4.6); Lymphocytes % 22.1 %; Mean Corpuscular Hemoglobin 29.8 pg (28.0-33.3); Mean Corpuscular Volume 90.3 fL (83.0-100.0); Mean Platelet Volume 10.9 fL (9.4-12.4); Monocytes # 0.4 K/mcL (0.0-1.3); Neutrophils # 5.8 K/mcL (1.6-8.9); Platelet Count 259 K/mcL (140-400); Red Blood Count 4.83 M/mcL (3.82-4.97); Red Cell Distribution Width 12.6 % (11.5-14.5); Segmented Neutrophils % 72.2 %; White Blood Count 8.1 K/mcL (4.3-11.1)
[2018-09-03 00:01] LABS: Alanine Aminotransferase 47 Units/L (7-52); Albumin 4.4 g/dL (3.5-5.7); Albumin/Globulin Ratio 1.3 (1.1-2.2); Alkaline Phosphatase 94 Units/L (34-104); Aspartate Amino Transferase 23 Units/L (13-39); BUN/Creatinine Ratio 17 (6-26); Bilirubin,Direct 0.1 mg/dL (0.0-0.2); Bilirubin,Indirect 0.5 mg/dL (0.0-1.2); Bilirubin,Total 0.6 mg/dL (0.3-1.0); Blood Urea Nitrogen 11 mg/dL (8-23); Calcium 10.1 mg/dL (8.6-10.3); Carbon Dioxide 28 mEq/L (23-29); Chloride 101 mEq/L (98-107); Globulin 3.4 g/dL (2.4-3.5); Glucose 117 mg/dL (70-105); Lipase 9 Units/L (11-82); Osmolality,Calculated 288 (280-300); Potassium 3.8 mEq/L (3.5-5.1); Sodium 139 mEq/L (136-145); Total Protein 7.8 g/dL (6.4-8.9); eGFR For African Americans > 60 (> 60); eGFR For Non-African Americans > 60 (> 60)
[2018-09-03] MEDS ORDERED: Isovue-370 500 ML BOTTLE IVP ONE (00:54)
[2018-09-03] MEDS ORDERED: Ondansetron ODT 4 MG TAB.RAPDIS SL ONE (00:55)
[2018-09-03] MEDS ORDERED: *HR* FentaNYL (PF) 100 MCG/2 ML VIAL IVP ONE (00:55)
--- NOTE | 2018-09-03 01:54 | Emergency Department Note ---
Disposition Clinical Impression: Small bowel obstruction, Enteritis Abdominal pain Qualifiers: Abdominal location: generalized Qualified Code(s): R10.84 - Generalized a bdominal pain Disposition: Admitted As Inpatient Condition: Fair Time of Disposition: 04:52 Abdominal Pain HPI - General Chief Complaint: ED Abdominal Pain Stated Complaint: Abd Pain Time Seen by Provider: 09/03/18 00:05 Source: patient - History of Present Illness Pain Scale: 8 - Related Data Home Medications Medication Instructions Recorded Confirmed Aspirin [Lo-Dose Aspirin EC] 81 mg PO DAILY 11/23/17 09/03/18 Fish Oil/Dha/Epa [Fish Oil 1,200 2 cap PO DAILY 11/23/17 09/03/18 mg Fish Oil] L. Acidophilus/Pectin, [place] 1 cap PO DAILY 11/23/17 09/03/18 [Acidophilus Capsule] Mesalamine [Apriso] 1.5 gm PO DAILY 11/23/17 11/23/17 Multivitamin/Iron/Folic Acid 1 tab PO DAILY 11/23/17 09/03/18 [Centrum Women Tablet] Mesalamine [Apriso] 0.375 gm PO DAILY 09/03/18 09/03/18 Previous Rx's Medication Instructions Recorded Acetaminophen [Tylenol] 650 mg PO Q6HR PRN tablet 11/26/17 Allergies Allergy/AdvReac Type Severity Reaction Status Date / Time No Known Allergies Allergy Verified 11/23/17 08:26 Abdominal Pain PMH - Past Medical History Medical history: Reports: other Female Surgical History: Reports: appendectomy, cataract Psychiatric history: Reports: no psych history - Social History Smoking status: Never smoker Alcohol use: Reports: none Drug use: Reports: none Physical Exam - General Limitations: no limitations General appearance: alert, in no apparent distress Course Vital Signs Temperature 97.8 F 09/02/18 21:13 Pulse Rate 97 09/02/18 21:13 Respiratory Rate 16 09/02/18 21:13 Blood Pressure 144/80 09/02/18 21:13 O2 Sat by Pulse Oximetry 98 09/02/18 21:13 Temperature 97.8 F 09/02/18 21:13 Pulse Rate 82 09/03/18 03:00 Respiratory Rate 16 09/03/18 01:26 Blood Pressure 136/77 09/03/18 03:00 O2 Sat by Pulse Oximetry 100 09/03/18 03:00 Oxygen Delivery Oxygen Delivery Room Air Abdominal Pain - Lab Data Result diagrams: 09/02/18 23:02 09/02/18 23:02 Lab Results 09/02/18 09/02/18 09/02/18 Range/Units 21:13 23:02 23:02 WBC 8.1 (4.3-11.1) K/mcL RBC 4.83 (3.82-4.97) M/mcL Hgb 14.4 (11.5-15.4) g/dL Hct 43.6 (35.3-44.9) % MCV 90.3 (83.0-100.0) fL MCH 29.8 (28.0-33.3) pg MCHC 33.0 (31.6-35.5) g/dL RDW 12.6 (11.5-14.5) % Plt Count 259 (140-400) K/mcL MPV 10.9 (9.4-12.4) fL Immature Gran % 0.2 (0-4) % Seg Neutrophils % 72.2 % Lymphocytes % 22.1 % Monocytes % 5.0 % Eosinophils % 0.1 % Basophils % 0.4 % Neutrophils # 5.8 (1.6-8.9) K/mcL Lymphocytes # 1.8 (0.6-4.6) K/mcL Monocytes # 0.4 (0.0-1.3) K/mcL Eosinophils # 0.0 (0.0-0.6) K/mcL Basophils # 0.0 (0.0-0.2) K/mcL Sodium 139 (136-145) mEq/L Potassium 3.8 (3.5-5.1) mEq/L Chloride 101 (98-107) mEq/L Carbon Dioxide 28 (23-29) mEq/L BUN 11 (8-23) mg/dL Creatinine 0.63 (0.60-1.20) mg/dL Est GFR ( Amer) > 60 (> 60) Est GFR (Non-Af Amer) > 60 (> 60) BUN/Creatinine Ratio 17 (6-26) Glucose 117 H (70-105) mg/dL Calculated Osmolality 288 (280-300) Calcium 10.1 (8.6-10.3) mg/dL Total Bilirubin 0.6 (0.3-1.0) mg/dL Direct Bilirubin 0.1 (0.0-0.2) mg/dL Indirect Bilirubin 0.5 (0.0-1.2) mg/dL AST 23 (13-39) Units/L ALT 47 (7-52) Units/L Alkaline Phosphatase 94 (34-104) Units/L Serum Total Protein 7.8 (6.4-8.9) g/dL Albumin 4.4 (3.5-5.7) g/dL Globulin 3.4 (2.4-3.5) g/dL Albumin/Globulin Ratio 1.3 (1.1-2.2) Lipase 9 L (11-82) Units/L Urine Color Yellow (Yellow) Urine Clarity Clear (Clear) Urine pH 6.0 (5.0-8.0) pH Units Ur Specific [place] 1.021 (1.010-1.025) Urine Protein Negative (Neg-Trace) mg/dL Urine Glucose (UA) Normal (Normal) mg/dL Urine Ketones Negative (Negative) mg/dL Urine Blood Negative (Negative) Urine Nitrite Negative (Negative) Urine Bilirubin Negative (Negative) Urine Urobilinogen Normal (Normal) mg/dL Ur Leukocyte Esterase Small H (Negative) Urine Microscopic RBC 0-3 (0-3) per hpf Urine Microscopic WBC 3-5 H (0-3) per hpf Ur Squamous Epith Cells Many H (None-Few) per lpf Urine Bacteria None Seen (None-Few) per hpf Hyaline Casts None Seen (None-Few) per lpf Ur Culture Indicated? YES A (NO) Attestation Statement - Attestation Attestation: I, Roldan Gant DO, examined this patient [id number] and my medical decision-making was reviewed with Dr. Clarissa Cordero, Resident Physician. I agree with the documented findings, disposition and treatment plan as described except to the extent set forth below. I personally supervised and was present for the solorio/critical portions of the procedures completed by the resident documented below. Please see my progress notes for details. 77-year-old female presents emergency room with acute onset of right upper quadrant abdominal pain and pain that radiates into her back. Patient is a history of gallstones. She also had her appendix removed by an open procedure last fall. There is issues with the appendix being infused to the bowel the bowel being adhesed to the abdominal wall. Patient denies any recent fevers or chills. She denies any chest pain or shortness of breath. She has not had any nausea but has had vomiting. Denies any diarrhea. She has not had any symptoms like this in the past despite a history of biliary colic. Vital signs are reviewed and are stable. Patient is alert she is oriented. Lungs are clear heart is regular. Oropharynx is patent trachea is midline. No stridor no trismus noted on exam. Epigastric discomfort is noted on exam with mild tenderness of the right upper quadrant that radiates around into the back. Patient has no specific history of aneurysm or vascular related issue in the abdomen. She does have history of gallstones at this point. She has no guarding rigidity or peritoneal symptoms. She has no CVA tenderness. No history of renal stone or calculi. Patient denies any burning with urination no vaginal discharge no vaginal pressure or other complaints at this point. Vital signs are reviewed and are stable. Patient is resting comfortably displayed describing pain and discomfort at this time. Symptomatic control fluids nausea medication pain medication will be provided. EKG was collected and reviewed by myself in documented in the resident physician's note. [id number] Patient found to have possible adhesion small bowel obstruction or terminal ileitis. Patient also has concern for possible cholecystitis. Right upper Quadrant ultrasound is been ordered this time. Antibiotic regimen will be started with IV Zosyn for prophylactic coverage. Disposition to be determined after the ultrasound is completed. Patient is been provided repeat dose of pain medication at this time. Nothing by mouth status will be established [id number] Patient has negative ultrasound. Conversation was had with the on-call surgeon Dr. olmedo. No other recommendations for him at this time outside of admission to the hospitalist and then surgical evaluation the morning. Patient will be made nothing by mouth. Does not require any emergent surgical intervention. Patient will be monitored here in the emergency department until the admission is completed. Patient was discussed with the hospitalist Dr. Lombardi. No other concerns or issues noted at this time. Patient is otherwise clinically stable. Patient will be monitored here until the admission is completed
[2018-09-03] MEDS ORDERED: *HR* HYDROmorphone (PF) 1 MG/ML SYRINGE IVP ONE ×2 (02:31→04:59)
[2018-09-03] MEDS ORDERED: Hyoscyamine 0.5 MG/ML MLS IVP ONE (02:31)
[2018-09-03] MEDS ORDERED: Ondansetron 4 MG/2 ML VIAL ONE (02:49)
[2018-09-03] MEDS ORDERED: Ondansetron 4 MG/2 ML VIAL IVP ONE (02:50)
--- NOTE | 2018-09-03 04:20 | Emergency Department Note ---
Disposition Clinical Impression: Abdominal pain Qualifiers: Abdominal location: generalized Qualified Code(s): R10.84 - Generalized abdominal pain Disposition: Admitted As Inpatient Referrals: Ramón Hackett Jr, MD [Primary Care Provider] - Forms: ED Satisfaction Letter, Work/School Release Time of Disposition: 04:42 Abdominal Pain HPI - General Chief Complaint: ED Abdominal Pain Stated Complaint: Abd Pain Time Seen by Provider: 09/03/18 00:05 Source: patient, family Mode of arrival: private vehicle Limitations: no limitations Nursing Notes Reviewed: Yes Vital Signs Reviewed: Yes - History of Present Illness HPI Narrative: 77-year-old female with past medical history of polyps removed during colonoscop ies, as well as appendectomy last November. Patient had a colonoscopy on Sunday of last week, she was tolerating well, had return of soft bowel movements, and then this afternoon at around 1630 she began experiencing abdominal pain that started RUQ, but is now diffuse. Last meal at 1600, approx 12 fresh cherries. Reports that her pain is crampy in nature, waxing and waning, but increasing in severity, with moments of excruciating pain. She reports a history of gall stones, but states that this does not feel like that. Pain Scale: 8 - Related Data Home Medications Medication Instructions Recorded Confirmed Aspirin [Lo-Dose Aspirin EC] 81 mg PO DAILY 11/23/17 09/03/18 Fish Oil/Dha/Epa [Fish Oil 1,200 2 cap PO DAILY 11/23/17 09/03/18 mg Fish Oil] L. Acidophilus/Pectin, [place] 1 cap PO DAILY 11/23/17 09/03/18 [Acidophilus Capsule] Mesalamine [Apriso] 1.5 gm PO DAILY 11/23/17 11/23/17 Multivitamin/Iron/Folic Acid 1 tab PO DAILY 11/23/17 09/03/18 [Centrum Women Tablet] Mesalamine [Apriso] 0.375 gm PO DAILY 09/03/18 09/03/18 Previous Rx's Medication Instructions Recorded Acetaminophen [Tylenol] 650 mg PO Q6HR PRN tablet 11/26/17 Allergies Allergy/AdvReac Type Severity Reaction Status Date / Time No Known Allergies Allergy Verified 11/23/17 08:26 Review of Systems: In addition to that documented in the HPI above, the additional ROS was obtained: Constitutional: Denies fevers or chills Eyes: Denies vision changes ENMT: Denies sore throat CV: Denies chest pain Resp: Denies SOB GI: Denies vomiting, constipation Reports: nausea, diarrhea a few days ago : Denies painful urination MSK: Denies recent trauma Skin: Denies new rashes Neuro: Denies new numbness or tingling or weakness Abdominal Pain PMH - Past Medical History Medical history: Reports: other Female Surgical History: Reports: appendectomy, cataract Psychiatric history: Reports: no psych history - Social History Smoking status: Never smoker Alcohol use: Reports: none Drug use: Reports: none Physical Exam General: A&O x 3. Appears mildly distressed. Well developed, well nourished. Appears stated age. Head: atraumatic, normocephalic. ENT: No conjunctival injection, no scleral icterus. PERRLA. EOMI. Oropharynx non- erythematous. mucous membranes moist. Neuro: No focal deficits, no speech deficit, no facial droop, mentating well. BUE/BLE Str 5/5. Pulm: Lungs CTAB A/P. No wheezes, rales, ronchi. Cardio: RRR no m/r/g. Chest not tender to palpation. Abd: Distended, hyper-resonance to percussion, hyperactive bowel sounds, d iffusely tender to palpation. No guarding. Extremities: Radial pulses 2+ monserrat, dorsalis pedis/posterior tibialis 2+ monserrat. No LE edema. No cyanosis, clubbing. Skin: warm, dry, intact. No rashes. Psych: Appropriate mood and affect. Answers questions appropriately. Cooperative with exam. - General Limitations: no limitations General appearance: alert, in no apparent distress Course Course Narrative: Concern for SBO, will obtain CT Abd/Pelvis. - Reevaluation(s) Reevaluation #1: CT shows choleylithiasis and concern for SBO. Will obtain RUQ US to r/o choleycystitis. Time: 12:30 - Consultations Time: 04:15 Vital Signs Temperature 97.8 F 09/02/18 21:13 Pulse Rate 97 09/02/18 21:13 Respiratory Rate 16 09/02/18 21:13 Blood Pressure 144/80 09/02/18 21:13 O2 Sat by Pulse Oximetry 98 09/02/18 21:13 Temperature 97.8 F 09/02/18 21:13 Pulse Rate 82 09/03/18 03:00 Respiratory Rate 16 09/03/18 01:26 Blood Pressure 136/77 09/03/18 03:00 O2 Sat by Pulse Oximetry 100 09/03/18 03:00 Oxygen Delivery Oxygen Delivery Room Air Abdominal Pain - MDM Narrative Medical decision making narrative: CT was concerning for partial small bowel obstruction. Pain was improved after administration of dilaudid, levsin, fentanyl. Nausea was controlled with zofran x 2. Dr. Velazquez was called for consult, see consult note for full details. He requested admission to hospitalist. Pt was admitted to hospitalist, Dr. Lombardi. Pt remained stable while in the department. - Medical Records Medical records reviewed: Yes I reviewed the patient's medical records. - Lab Data Lab results reviewed: Yes I reviewed the patient's lab results. Result diagrams: 09/02/18 23:02 09/02/18 23:02 Lab Results 09/02/18 09/02/18 09/02/18 Range/Units 21:13 23:02 23:02 WBC 8.1 (4.3-11.1) K/mcL RBC 4.83 (3.82-4.97) M/mcL Hgb 14.4 (11.5-15.4) g/dL Hct 43.6 (35.3-44.9) % MCV 90.3 (83.0-100.0) fL MCH 29.8 (28.0-33.3) pg MCHC 33.0 (31.6-35.5) g/dL RDW 12.6 (11.5-14.5) % Plt Count 259 (140-400) K/mcL MPV 10.9 (9.4-12.4) fL Immature Gran % 0.2 (0-4) % Seg Neutrophils % 72.2 % Lymphocytes % 22.1 % Monocytes % 5.0 % Eosinophils % 0.1 % Basophils % 0.4 % Neutrophils # 5.8 (1.6-8.9) K/mcL Lymphocytes # 1.8 (0.6-4.6) K/mcL Monocytes # 0.4 (0.0-1.3) K/mcL Eosinophils # 0.0 (0.0-0.6) K/mcL Basophils # 0.0 (0.0-0.2) K/mcL Sodium 139 (136-145) mEq/L Potassium 3.8 (3.5-5.1) mEq/L Chloride 101 (98-107) mEq/L Carbon Dioxide 28 (23-29) mEq/L BUN 11 (8-23) mg/dL Creatinine 0.63 (0.60-1.20) mg/dL Est GFR ( Amer) > 60 (> 60) Est GFR (Non-Af Amer) > 60 (> 60) BUN/Creatinine Ratio 17 (6-26) Glucose 117 H (70-105) mg/dL Calculated Osmolality 288 (280-300) Calcium 10.1 (8.6-10.3) mg/dL Total Bilirubin 0.6 (0.3-1.0) mg/dL Direct Bilirubin 0.1 (0.0-0.2) mg/dL Indirect Bilirubin 0.5 (0.0-1.2) mg/dL AST 23 (13-39) Units/L ALT 47 (7-52) Units/L Alkaline Phosphatase 94 (34-104) Units/L Serum Total Protein 7.8 (6.4-8.9) g/dL Albumin 4.4 (3.5-5.7) g/dL Globulin 3.4 (2.4-3.5) g/dL Albumin/Globulin Ratio 1.3 (1.1-2.2) Lipase 9 L (11-82) Units/L Urine Color Yellow (Yellow) Urine Clarity Clear (Clear) Urine pH 6.0 (5.0-8.0) pH Units Ur Specific [place] 1.021 (1.010-1.025) Urine Protein Negative (Neg-Trace) mg/dL Urine Glucose (UA) Normal (Normal) mg/dL Urine Ketones Negative (Negative) mg/dL Urine Blood Negative (Negative) Urine Nitrite Negative (Negative) Urine Bilirubin Negative (Negative) Urine Urobilinogen Normal (Normal) mg/dL Ur Leukocyte Esterase Small H (Negative) Urine Microscopic RBC 0-3 (0-3) per hpf Urine Microscopic WBC 3-5 H (0-3) per hpf Ur Squamous Epith Cells Many H (None-Few) per lpf Urine Bacteria None Seen (None-Few) per hpf Hyaline Casts None Seen (None-Few) per lpf Ur Culture Indicated? YES A (NO) - Radiology Data Radiology results reviewed: Yes I reviewed the patient's radiology results. Abdomen/Pelvis CT 09/03/18 00:54 IMPRESSION: 1. Partial small bowel obstruction may be related to enteritis in the terminal ileum. However, adhesions in the right lower quadrant related to interim appendectomy are not excluded. 2. Trace free fluid in the pelvis, likely reactive. 3. Cholelithiasis. Suggestion of edematous gallbladder wall thickening especially along the gallbladder fossa could be related to cholecystitis but could also be seen with other etiologies such as hypoproteinemia. Consider further evaluation with sonography or a nuclear medicine hepatobiliary scan if there are clinical findings of cholecystitis. 4. Increased mild intrahepatic and extrahepatic biliary dilation. Choledocholithiasis related to noncalcified stones is not excluded. Consider MRCP. D/ / Atilio English MD / Atilio English MD Interpreting Provider: Atilio English MD Gallbladder Ultrasound 09/03/18 02:44 IMPRESSION: Cholelithiasis and biliary ductal dilation without sonographic evidence for acute cholecystitis. D/ / Reymundo Johnson MD / Reymundo Johnson MD Interpreting Provider: Reymundo Johnson MD - EKG Data EKG attestation: Yes I reviewed and interpreted this EKG. EKG results narrative: HR 84, rhythm sinus, axis extreme right. NV 189, QRS 89, QTc 473. No ST elevation or depression. Attestation Statement - Attestation Attestation: I, Roldan Gant DO, examined this patient [id number] and my medical decision-making was reviewed with Dr. Clarissa Cordero, Resident Physician. I agree with the documented findings, disposition and treatment plan as described except to the extent set forth below. I personally supervised and was present for the solorio/critical portions of the procedures completed by the resident documented below. Please see my progress notes for details.
[2018-09-03] MEDS ORDERED: *HR* FentaNYL (PF) 100 MCG/2 ML VIAL IVP PRN (06:03)
[2018-09-03] MEDS ORDERED: Naloxone 0.4 MG/ML INJ IVP PRN (06:03)
--- NOTE | 2018-09-03 06:17 | Internal Med History&Physical ---
Date of Encounter: 09/03/18 Time of Encounter: 05:35 Internal Medicine - H&P: HPI Chief complaint: abdominal pain Admitted From: Emergency Dept Plans for Post Hospital Care: Home History of present illness: Ms. Pollock is a 77 year old female who presents to the hospital with complaints of abdominal pain since yesterday afternoon. Pain started across her mid abdomen and radiated to her left flank area. It was intense and throbbing in nature. She associates nausea and vomiting. Because of the pain and intensity, she came to ER for evaluation. She underwent CT scan imaging which confirmed partial small bowel obstruction. She also had evidence of cholelithiasis. She underwent gallbladder ultrasound which is suspicious for cholecystitis. She was therefore admitted to hospitalist service with surgery consultation. Of note, patient had a colonoscopy 6 days ago in [place] with her GI doctor. According to patient and her daughter, colonoscopy was unremarkable. She does have a history of ulcerative colitis which has been well-managed with mesalamine. According to patient and daughter, she has not curtis d any complications of ulcerative colitis in the past. She has only had one abdominal surgery in the past --last year for appendicitis. Presently, patient's abdominal pain is controlled. She is no longer nauseous or vomiting. She last had a bowel movement yesterday and passed flatus last night. Past Med Surg Social Fam HX - Past Medical History Attestation: Yes The following information was validated with the patient. Source: patient, old records reviewed, obtained from family Medical history: other Additional medical history: Ulcerative Collitits Psychiatric history: no psych history - Past Surgical History Surgical History: appendectomy Additional surgical history: breast reduction, Tonsils removed, cataracts - Social History Smoking Status: Never smoker Smokeless Tobacco Status: No Alcohol use: none Drug use: none Current living situation: Home, With Family Activity Level: Independent ambulation Recent Out of Country Travel Within the Last 8 Weeks: No - Family History Father Hx Family Cardiac Disorders: Yes Hx Family Endocrine Disorder: Yes (DM) Mother Hx Family Neurologic Disorders: Yes (Stroke) Daughter Hx Family Cardiac Disorders: Yes Internal Medicine - H&P: Meds Aspirin [Lo-Dose Aspirin EC] 81 mg PO DAILY 11/23/17 [History] Fish Oil/Dha/Epa [Fish Oil 1,200 mg Fish Oil] 2 cap PO DAILY 11/23/17 [History] L. Acidophilus/Pectin, [place] [Acidophilus Capsule] 1 cap PO DAILY 11/23/17 [History] Mesalamine [Apriso] 1.5 gm PO DAILY 11/23/17 [History] Multivitamin/Iron/Folic Acid [Centrum Women Tablet] 1 tab PO DAILY 11/23/17 [History] Acetaminophen [Tylenol] 650 mg PO Q6HR PRN tablet 11/26/17 [Rx] Allergy/AdvReac Type Severity Reaction Status Date / Time No Known Allergies Allergy Verified 11/23/17 08:26 - Constitutional Constitutional: no chills, no fever(s), no night sweats - EENT Eyes: no blurry vision, no change in vision Ears: no ear pain, no tinnitus Nose, mouth and throat: no nasal congestion, no sinus pressure, no sore throat - Cardiovascular Cardiovascular ROS IM: no chest pain, no diaphoresis - Respiratory Respiratory: no cough, no hemoptysis, no chest congestion, no excessive phlegm production - Gastrointestinal Gastrointestinal: abdominal pain, nausea, vomiting, no coffee ground emesis, no diarrhea, no hematemesis, no hematochezia, no melena - Genitourinary Genitourinary: no dysuria, no flank pain, no hematuria - Musculoskeletal Musculoskeletal ROS IM: no arthralgias, no back pain - Integumentary Integumentary IM: no rash, no jaundice - Neurological Neurological ROS: no dizziness, no focal weakness, no frequent falls, no headache(s) - Psychiatric Psychiatric: no anxiety, no depression - Endocrine Endocrine IM: no polydipsia, no polyuria - Allergic/Immunologic Allergic/Immunologic: GI upset with certain foods, no wheezing - Constitutional Vitals: Temp Pulse Resp BP Pulse Ox 98.2 F 73 18 134/72 96 09/03/18 05:32 09/03/18 05:32 09/03/18 05:32 09/03/18 05:32 09/03/18 05:32 General appearance: Present: cooperative, mild distress, A&O X 3, pleasant, answers questions appropriately Exam: see below - Head Head exam: Present: atraumatic, normal inspection - Eye Eye exam: Present: EOMI, PERRL. Absent: scleral icterus Pupils: Present: normal accommodation - ENT ENT exam: Present: mucous membranes dry, normal exam, normal oropharynx - Neck Neck exam general surgery: Present: full ROM, supple, trachea midline. Absent: lymphadenopathy, tenderness, nuchal rigidity, thyromegaly - Respiratory Respiratory exam: Present: CTAB. Absent: chest wall tenderness, rales, respiratory distress, rhonchi, tachypnea - Cardiovascular Cardiovascular exam: Present: RRR, +S1, +S2. Absent: diastolic murmur, systolic murmur - GI/Abdominal GI/Abdominal exam: Present: guarding, hypoactive bowel sounds, soft, tenderness (non-specific/diffuse but most prominent in epigastric to LUQ). Absent: hepatomegaly, mass, rebound, splenomegaly, no peritoneal signs - Extremities Exam Extremities exam: Present: full ROM, normal capillary refill, warm, radial pulses palpable and symmetrical. Absent: calf tenderness, joint swelling, pedal edema, tenderness - Back Exam Back exam: Absent: CVA tenderness (L), CVA tenderness (R) - Neurological Exam Neurological exam: Present: alert, CN II-XII intact, oriented X3, strengths equal and symetr throughout - Psychiatric Psychiatric exam: Present: normal affect, normal mood - Skin Skin exam: Present: dry, intact, warm Internal Med - H&P Results - Labs CBC & Chem 7: 09/02/18 23:02 09/02/18 23:02 Labs: Short CBC 09/02/18 Range/Units 23:02 WBC 8.1 (4.3-11.1) K/mcL Hgb 14.4 (11.5-15.4) g/dL Hct 43.6 (35.3-44.9) % Plt Count 259 (140-400) K/mcL Neutrophils # 5.8 (1.6-8.9) K/mcL BMP 09/02/18 23:02 Sodium 139 Potassium 3.8 Chloride 101 Carbon Dioxide 28 BUN 11 Creatinine 0.63 Glucose 117 H Calcium 10.1 Liver Function 09/02/18 Range/Units 23:02 Total Bilirubin 0.6 (0.3-1.0) mg/dL Direct Bilirubin 0.1 (0.0-0.2) mg/dL AST 23 (13-39) Units/L ALT 47 (7-52) Units/L Alkaline Phosphatase 94 (34-104) Units/L Albumin 4.4 (3.5-5.7) g/dL Urine 09/02/18 Range/Units 21:13 Urine Color Yellow (Yellow) Urine Clarity Clear (Clear) Urine pH 6.0 (5.0-8.0) pH Units Ur Specific [place] 1.021 (1.010-1.025) Urine Protein Negative (Neg-Trace) mg/dL Urine Glucose (UA) Normal (Normal) mg/dL - Impressions ITS Impressions Abdomen/Pelvis CT 09/03/18 00:54 IMPRESSION: 1. Partial small bowel obstruction may be related to enteritis in the terminal ileum. However, adhesions in the right lower quadrant related to interim appendectomy are not excluded. 2. Trace free fluid in the pelvis, likely reactive. 3. Cholelithiasis. Suggestion of edematous gallbladder wall thickening especially along the gallbladder fossa could be related to cholecystitis but could also be seen with other etiologies such as hypoproteinemia. Consider further evaluation with sonography or a nuclear medicine hepatobiliary scan if there are clinical findings of cholecystitis. 4. Increased mild intrahepatic and extrahepatic biliary dilation. Choledocholithiasis related to noncalcified stones is not excluded. Consider MRCP. D/ / Atilio English MD / Atilio English MD Interpreting Provider: Atilio English MD Gallbladder Ultrasound 09/03/18 02:44 IMPRESSION: Cholelithiasis and biliary ductal dilation without sonographic evidence for acute cholecystitis. D/ / Reymundo Johnson MD / Reymundo Johnson MD Interpreting Provider: Reymundo Johnson MD - Diagnostic Studies CT scan - abdomen Status: image reviewed by me - Assessment and Plan (1) Small bowel obstruction Current Visit: Yes Status: Acute Assessment and plan: 1. Will keep npo, hydrate with IVF, and provide pain/nausea control. 2. Surgery consulted -- Dr. Velazquez. 3. Consider NG tube if symptoms worsen or if she develops protracted N/V. (2) Cholelithiasis Current Visit: Yes Status: Acute Assessment and plan: 1. Monitor for symptoms of cholecystitis. 2. Consider HIDA scan if indicated. 3. Culture blood and start antibiotics to cover GI fatou. Qualifiers: Cholelithiasis location: gallbladder Cholecystitis presence: without cholecystitis Biliary obstruction: without biliary obstruction Qualified Code(s): K80.20 - Calculus of gallbladder without cholecystitis without obstruction (3) Ulcerative colitis Current Visit: Yes Status: Chronic Assessment and plan: 1. Continue home meds as appropriate. 2. Patient had colonoscopy last week -- try to obtain results. Qualifiers: Ulcerative colitis location: other ulcerative colitis Digestive disease complication type: without complication Qualified Code(s): K51.80 - Other ulcerative colitis without complications (4) DVT prophylaxis Current Visit: Yes Status: Acute Assessment and plan: 1. Heparin SQ.
[2018-09-03] MEDS: 0.9 % Sodium Chloride w KCl 20 MEQ/1,000 ML MLS IVC SCH ×2 (06:32→20:11)
[2018-09-03] MEDS: MetroNIDAZOLE 500 MG/100 ML 500 MG/100 ML BAG IVPB SCH ×3 (08:12→23:15)
[2018-09-03] MEDS: Mesalamine 250 MG CAPSULE.ER PO SCH (08:12)
--- NOTE | 2018-09-03 08:15 | Event Note ---
Date of Encounter: 09/03/18 Time of Encounter: 08:15 Seen and assessed. Agree with plan per night team Plan Small bowel obstruction. continue conservative management. Surgery on board Bile duct dilatation. Obtain MRCP. Gi recs appreciated
[2018-09-03] MEDS: Ondansetron 4 MG/2 ML VIAL IVP PRN ×2 (08:28→18:38)
--- NOTE | 2018-09-03 10:29 | General Surgery Consult Note ---
Date of Encounter: 09/03/18 Time of Encounter: 10:05 History of Present Illness Consult date: 09/03/18 Reason for consult: abdominal pain (SBO) Requesting physician: Belinda Perry History of present illness: 77-year-old referred for surgical evaluation of presenting to the emergency department with abrupt onset right lower quadrant abdominal pain and nausea. The patient denied any fevers, chills, or emesis but the pain became quite severe prompting her to present to the emergency department for further evaluat ion and treatment. During her evaluation in the emergency department and the patient also experienced right upper quadrant abdominal pain Labs were unremarkable but CT abdomen/pelvis demonstrated dilatation of multiple loops of distal small bowel/ileum with return to normal caliber at the terminal ileum. The proximal to mid ileum demonstrated wall thickening and yuri-enteric stranding. Additional findings include: diverticulosis without inflammation; radiologic evidence prior appendectomy; and gallstones without obvious gallbladder wall thickening, ductal dilatation or pericholecystic fluid. The staple line pertaining to the appendectomy appeared intact. The small bowel inflammation was several centimeters proximal to the staple line. Sonogram of the gallbladder was also completed. Findings include cholelithiasis without pericholecystic fluid, mild intrahepatic ductal dilatation but no pericholecystic fluid. The recent imaging was personally reviewed with [facility]. Past medical history is notable for ulcerative colitis; colonoscopy was recently completed Surgical history: Tonsillectomy as a child; bilateral reduction mammoplasty, 2006; laparoscopy converted to open right colectomy for acute appendicitis, 11/23/17. The appendix was described densely adherent to the terminal ileum and separation of the structures could not be completed laparoscopically. It was necessary to convert to open. As noted, CT shows an intact staple line with the acute inflammatory changes involving the proximal to mid ileum centimeters away from the previous surgery. It is likely that the involved segment of small bowel is adherent within the right pelvis. Allergies: No known drug allergies Medications on admission Aspirin 81 mg by mouth daily Red Bud-3 fish oil 1200 mg by mouth daily Acidophilus 1 cap by mouth daily Mesalamine 1.5 g by mouth daily Multivitamins with iron and folic acid 1 tab daily Tylenol 650 mg by mouth every 6 hours as needed for pain Social history: The patient has never smoked, she admits to rare alcoholic beverage. She does not consume any illicit drugs. The patient is G2, P2 Family history notable for daughter with hypertrophic cardiomyopathy with obstruction requiring open heart surgery Physical examination: Age-appropriate woman resting comfortably in her hospital bed. She is in no acute distress. The patient is afebrile, currently 98.2, pulse 69-73, regular; respirations 16-18, unlabored; blood pressure 124/73. SPO2 on room air 97% Skin: Warm, no obvious jaundice Lungs: Clear bilaterally, no obvious abdominal pain on deep inspiration or cough Cardiac: Regular rate, no appreciable murmurs Abdomen: Soft with minimal tenderness in the right lower quadrant. A well- healed transverse incision cephalad and medial to the right ASIS right lower anterior abdominal wall. No detected fascial defects. No detected intra- abdominal masses. No rebound. Hypoactive bowel sounds. Extremities: No obvious clubbing, cyanosis, or edema Impression: 77-year-old admitted after presenting to the emergency department with abrupt onset right lower quadrant abdominal pain and nausea. There are radiologic findings of multiple dilated loops distal small bowel/ileum consistent with small bowel obstruction with a slow tapering return to normal caliber at the terminal ileum. Patient has a history of ulcerative colitis which may be contributing to the current symptoms. Treatment options include medical management including nothing by mouth, IV antibiotics and fluids, appropriate pain control versus surgical intervention. Surgical intervention would entail open exploration with resection of the involved small bowel with coincidental cholecystectomy. Risks of surgery were discussed in detail with the patient. The risks include hemorrhage, infection, injury to adjacent structures, anastomotic stricture/leak, and possible ileostomy/colostomy. Surgery is likely to result in additional adhesions which could cause a small bowel obstruction in the future. The patient and her daughter were comfortable with medical management. I will follow along with you and make further recommendations as the patient's condition dictates. Past Med Surg Social Fam HX - Past Medical History Medical history: other Additional medical history: Ulcerative Collitits Psychiatric history: no psych history - Past Surgical History Surgical History: appendectomy Additional surgical history: breast reduction, Tonsils removed, cataracts - Social History Smoking Status: Never smoker Smokeless Tobacco Status: No Alcohol use: none Drug use: none - Family History Father Hx Family Cardiac Disorders: Yes Hx Family Endocrine Disorder: Yes (DM) Mother Hx Family Neurologic Disorders: Yes (Stroke) Daughter Hx Family Cardiac Disorders: Yes Medications and Allergies Aspirin [Lo-Dose Aspirin EC] 81 mg PO DAILY 11/23/17 [History] Fish Oil/Dha/Epa [Fish Oil 1,200 mg Fish Oil] 2 cap PO DAILY 11/23/17 [History] L. Acidophilus/Pectin, [place] [Acidophilus Capsule] 1 cap PO DAILY 11/23/17 [History] Mesalamine [Apriso] 1.5 gm PO DAILY 11/23/17 [History] Multivitamin/Iron/Folic Acid [Centrum Women Tablet] 1 tab PO DAILY 11/23/17 [History] Acetaminophen [Tylenol] 650 mg PO Q6HR PRN tablet 11/26/17 [Rx] Allergy/AdvReac Type Severity Reaction Status Date / Time No Known Allergies Allergy Verified 11/23/17 08:26 Review of Systems All systems PM: The remainder of the systems were reviewed and are negative General Surgery Exam Initial Vital Signs Temp Pulse Resp BP Pulse Ox 97.8 F 97 16 144/80 98 09/02/18 21:13 09/02/18 21:13 09/02/18 21:13 09/02/18 21:13 09/02/18 21:13 Exam Initial Vital Signs Temp Pulse Resp BP Pulse Ox 97.8 F 97 16 144/80 98 09/02/18 21:13 09/02/18 21:13 09/02/18 21:13 09/02/18 21:13 09/02/18 21:13 Results - Labs 09/02/18 23:02 09/02/18 23:02 Abnormal lab results Glucose 117 mg/dL (70-105) H 09/02/18 23:02 POC Glucose 129 mg/dL (70-99) H 09/03/18 05:42 9 Units/L (11-82) L 09/02/18 23:02 Ur Leukocyte Esterase Small (Negative) H 09/02/18 21:13 3-5 per hpf (0-3) H 09/02/18 21:13 Ur Squamous Epith Cells Many per lpf (None-Few) H 09/02/18 21:13 Ur Culture Indicated? YES (NO) A 09/02/18 21:13 Diabetes panel 09/02/18 Range/Units 23:02 Sodium 139 (136-145) mEq/L Potassium 3.8 (3.5-5.1) mEq/L Chloride 101 (98-107) mEq/L Carbon Dioxide 28 (23-29) mEq/L BUN 11 (8-23) mg/dL Creatinine 0.63 (0.60-1.20) mg/dL Glucose 117 H (70-105) mg/dL Calcium 10.1 (8.6-10.3) mg/dL AST 23 (13-39) Units/L ALT 47 (7-52) Units/L Alkaline Phosphatase 94 (34-104) Units/L Albumin 4.4 (3.5-5.7) g/dL Calcium panel 09/02/18 Range/Units 23:02 Calcium 10.1 (8.6-10.3) mg/dL Albumin 4.4 (3.5-5.7) g/dL Pituitary panel 09/02/18 Range/Units 23:02 Sodium 139 (136-145) mEq/L Potassium 3.8 (3.5-5.1) mEq/L Chloride 101 (98-107) mEq/L Carbon Dioxide 28 (23-29) mEq/L BUN 11 (8-23) mg/dL Creatinine 0.63 (0.60-1.20) mg/dL Glucose 117 H (70-105) mg/dL Calcium 10.1 (8.6-10.3) mg/dL Adrenal panel 09/02/18 Range/Units 23:02 Sodium 139 (136-145) mEq/L Potassium 3.8 (3.5-5.1) mEq/L Chloride 101 (98-107) mEq/L Carbon Dioxide 28 (23-29) mEq/L BUN 11 (8-23) mg/dL Creatinine 0.63 (0.60-1.20) mg/dL Glucose 117 H (70-105) mg/dL Calcium 10.1 (8.6-10.3) mg/dL Total Bilirubin 0.6 (0.3-1.0) mg/dL AST 23 (13-39) Units/L ALT 47 (7-52) Units/L Alkaline Phosphatase 94 (34-104) Units/L Albumin 4.4 (3.5-5.7) g/dL All other labs normal. Consult Discharge Plan - Plan Referrals: Ramón Hackett Jr, MD [Primary Care Provider] -
--- NOTE | 2018-09-03 11:51 | Gastroenterology Consult Note ---
<Atilio Emerson Keven - Last Filed: 09/03/18 11:48> Date of Encounter: 09/03/18 Time of Encounter: 10:20 - Assessment and plan (1) Common bile duct dilatation Status: Acute Assessment and plan: CT A/P showed partial small bowel obstruction which may be related to enteritis in TI, cholelithiasis, and mild intra/extrahepatic biliary dilation. RUQ US with cholelithiasis and showed CBD dilated to 11mm. MRCP has been ordered. LFTs WNL. Await MRCP results, Dr. Wong to review images. If patient requires EUS or ERCP, she will need to be transferred to another facility, as Dr. Peña is out this week. (2) Small bowel obstruction Status: Acute Assessment and plan: CT A/P showed partial small bowel obstruction which may be related to enteritis in TI, cholelithiasis, and mild intra/extrahepatic biliary dilation. Management per Surgery and primary team. (3) Abdominal pain Status: Acute Qualifiers: Abdominal location: generalized Qualified Code(s): R10.84 - Generalized abdominal pain (4) Ulcerative colitis Status: Chronic Assessment and plan: Well controlled with mesalamine. Last colonoscopy 6 days ago in [place]. Obtain colonoscopy report and pathology. Qualifiers: Ulcerative colitis location: other ulcerative colitis Digestive disease complication type: without complication Qualified Code(s): K51.80 - Other ulcerative colitis without complications - Time Spent With Patient Total time spent is greater than 50% in coordination of care (as documented) at patient's floor/unit and/or counseling patient: GI History of Present Illness - Data of Consult Patient: new to practice Consult date: 09/03/18 Requesting Physician: Del Lombardi MD - Consult Narrative Reason for consult: CBD dilation History of present illness: Ms. Pollock is a 77 year old female with PMHx of ulcerative colitis who presented with complains of abdominal pain, nausea, and vomiting that started yesterday afternoon. Nausea and vomiting has resolved. CT A/P showed partial small bowel obstruction which may be related to enteritis in TI, cholelithiasis, and mild intra/extrahepatic biliary dilation. RUQ US with cholelithiasis and showed CBD dilated to 11mm. MRCP has been ordered. Patient states she follows with GI in [place], and had colonoscopy 6 days ago which was normal per patient report. Procedures: Colonoscopy 6 days ago in [place], normal per patient report. NSAIDs: ASA Anticoagulation: None Past Med Surg Social Fam HX - Past Medical History Medical history: other Additional medical history: Ulcerative Collitits Psychiatric history: no psych history - Past Surgical History Surgical History: appendectomy Additional surgical history: breast reduction, Tonsils removed, cataracts - Social History Smoking Status: Never smoker Smokeless Tobacco Status: No Alcohol use: none Drug use: none - Family History Father Hx Family Cardiac Disorders: Yes Hx Family Endocrine Disorder: Yes (DM) Mother Hx Family Neurologic Disorders: Yes (Stroke) Daughter Hx Family Cardiac Disorders: Yes - Gastrointestinal Gastrointestinal: Present: as per HPI - Constitutional Constitutional: as per HPI - EENT Eyes: as per HPI Ears: Present: as per HPI Nose, mouth and throat: Present: as per HPI - Cardiovascular Cardiovascular ROS: Present: as per HPI - Respiratory Respiratory IM: Present: as per HPI - Genitourinary Genitourinary: Absent: change in color, Urinary frequency - Neurological ROS Neurological GI: Present: as per HPI - Hematologic/Lymphatic Hematologic/Lymphatic pediatric: Present: as per HPI - Musculoskeletal Musculoskeletal ROS GI: Present: as per HPI - Integumentary Integumentary GI: Present: as per HPI - Psychiatric ROS Psychiatric GI: Present: as per HPI - Endocrine Endocrine IM: Present: as per HPI - Constitutional Vitals: Temp Pulse Resp BP Pulse Ox 98.2 F 76 17 127/63 97 09/03/18 10:38 09/03/18 10:38 09/03/18 10:38 09/03/18 10:38 09/03/18 10:38 General appearance: Present: cooperative, A&O X 3, no acute distress, answers questions appropriately - Head Head exam: Present: atraumatic, normocephalic - Eye Eye exam: Present: normal appearance, sclera anicteric - ENT ENT exam: Present: mucous membranes dry - Neck Neck exam general surgery: Present: normal inspection, trachea midline - Respiratory Respiratory exam: Present: decreased breath sounds, CTAB. Absent: rales, rhonchi - Cardiovascular Cardiovascular exam: Present: RRR, +S1, +S2 - GI/Abdominal GI/Abdominal exam: Present: guarding, normal bowel sounds, soft, tenderness (generalized tenderness, mostly epigastric and LUQ), no peritoneal signs. Absent: distended, firm Additional comments: Well healed surgical scar. - Rectal Rectal exam: Present: deferred - Extremities Exam Extremities exam: Present: warm - Neurological Exam Neurological exam: Present: no focal deficits - Psychiatric Psychiatric exam: Present: normal affect, normal mood - Skin Skin exam: Present: dry, intact, normal color, warm Results - Labs CBC & Chem 7: 09/02/18 23:02 09/02/18 23:02 Labs: Last Result 09/02/18 23:02 Calcium 10.1 Entire Visit 09/02/18 23:02 Total Bilirubin 0.6 AST 23 ALT 47 Lipase 9 L - Impressions Impressions Abdomen/Pelvis CT 09/03/18 00:54 IMPRESSION: 1. Partial small bowel obstruction may be related to enteritis in the terminal ileum. However, adhesions in the right lower quadrant related to interim appendectomy are not excluded. 2. Trace free fluid in the pelvis, likely reactive. 3. Cholelithiasis. Suggestion of edematous gallbladder wall thickening especially along the gallbladder fossa could be related to cholecystitis but could also be seen with other etiologies such as hypoproteinemia. Consider further evaluation with sonography or a nuclear medicine hepatobiliary scan if there are clinical findings of cholecystitis. 4. Increased mild intrahepatic and extrahepatic biliary dilation. Choledocholithiasis related to noncalcified stones is not excluded. Consider MRCP. D/ / Atilio English MD / Atilio English MD Interpreting Provider: Atilio English MD Gallbladder Ultrasound 09/03/18 02:44 IMPRESSION: Cholelithiasis and biliary ductal dilation without sonographic evidence for acute cholecystitis. D/ / Reymundo Johnson MD / Reymundo Johnson MD Interpreting Provider: Reymundo Johnson MD Consult Discharge Plan - Plan Referrals: Ramón Hackett Jr, MD [Primary Care Provider] - (Web-requested, the office will call the patient to schedule a follow up appointment. ) Dejan Peña MD [Partnered Physician] - (Web-requested, the offive will call the patient to schedule a follow up appointment. ) Prescriptions: Ciprofloxacin [Cipro] 500 mg PO BID #14 tablet metroNIDAZOLE [Flagyl] 500 mg PO TID #21 tablet <Jovani Wong - Last Filed: 09/10/18 04:01> Date of Encounter: 09/03/18 - Time Spent With Patient Total time spent is greater than 50% in coordination of care (as documented) at patient's floor/unit and/or counseling patient: GI History of Present Illness - Data of Consult Requesting Physician: Del Lombardi MD - Consult Narrative History of present illness: Ms. Pollock is a 77 year old female - Constitutional Vitals: Temp Pulse Resp BP Pulse Ox 98.0 F 51 18 102/64 95 09/06/18 10:48 09/06/18 10:48 09/06/18 10:48 09/06/18 10:48 09/06/18 10:48 Results - Labs CBC & Chem 7: 09/06/18 04:27 09/06/18 04:27 - ABG ABG results: PT/INR, D-dimer PT 12.6 Seconds (9.4-12.1) H 09/04/18 07:03 - Attending Attestation Patient admitted with cholelithiasis and dilated CBD on CT scan. Agree with proceeding with MRCP to get better definition and to include/exclude choledocholithiasis versus stricture ormass. Furthe recommendations post review of the scan. I have personally performed a face to face evaluation on this patient. I have reviewed and agree with the care plan. History and Exam by me shows:
--- NOTE | 2018-09-03 14:05 | Electrocardiograph Report ---
[facility] Test Date: 2018-09-03 Pat Name: Anum Pollock Department: EXAM3 Room: 3A25 Gender: F Billing Department Supervisor: : 1940 Requested By: Clarissa Cordero Order Number: [id number] Reading MD: Sterling Fenton Measurements Intervals [place] Rate: 84 P: 76 SC: 189 QRS: 265 QRSD: 89 T: 72 QT: 400 QTc: 473 Interpretive Statements Sinus rhythm Left atrial enlargement Anterolateral infarct, age indeterminate Electronically Signed On 09-03-2018 14:04:25 EDT by Sterling Fenton
[2018-09-03] MEDS: *HR* Heparin 5,000 UNIT/ML VIAL SQ SCH (17:41)
[2018-09-03] MEDS ORDERED: *HR* Promethazine 25 MG/ML VIAL IVP PRN (19:25)
[2018-09-03] MEDS: Promethazine 25 MG in 0.9 % Sodium Chloride 50 ML IVPB PRN (19:57)
[2018-09-04] MEDS: *HR* Heparin 5,000 UNIT/ML VIAL SQ SCH ×2 (05:16→18:33)
[2018-09-04 07:21] LABS: Basophils % 0.3 %; Eosinophils % 0.1 %; Hematocrit 33.5 % (35.3-44.9); Immature Granulocytes % 0.3 % (0-4); Lymphocytes # 1.8 K/mcL (0.6-4.6); Lymphocytes % 24.3 %; Mean Corpuscular HGB Conc 31.3 g/dL (31.6-35.5); Mean Corpuscular Hemoglobin 28.3 pg (28.0-33.3); Mean Corpuscular Volume 90.3 fL (83.0-100.0); Mean Platelet Volume 10.4 fL (9.4-12.4); Monocytes # 0.6 K/mcL (0.0-1.3); Monocytes % 8.6 %; Neutrophils # 4.9 K/mcL (1.6-8.9); Platelet Count 192 K/mcL (140-400); Red Blood Count 3.71 M/mcL (3.82-4.97); Red Cell Distribution Width 12.8 % (11.5-14.5); Segmented Neutrophils % 66.4 %; White Blood Count 7.4 K/mcL (4.3-11.1)
[2018-09-04 07:22] LABS: Hemoglobin 10.5 g/dL (11.5-15.4)
[2018-09-04 07:39] LABS: INR 1.1; Prothrombin Time 12.6 Seconds (9.4-12.1)
[2018-09-04 07:41] LABS: Activated Partial Thrombo Time 30.3 Seconds (26.0-36.0)
[2018-09-04 07:42] LABS: Alanine Aminotransferase 23 Units/L (7-52); Albumin 3.1 g/dL (3.5-5.7); Albumin/Globulin Ratio 1.4 (1.1-2.2); Alkaline Phosphatase 71 Units/L (34-104); Aspartate Amino Transferase 12 Units/L (13-39); BUN/Creatinine Ratio 28 (6-26); Bilirubin,Total 0.4 mg/dL (0.3-1.0); Blood Urea Nitrogen 16 mg/dL (8-23); Calcium 8.7 mg/dL (8.6-10.3); Carbon Dioxide 27 mEq/L (23-29); Chloride 108 mEq/L (98-107); Globulin 2.2 g/dL (2.4-3.5); Glucose 100 mg/dL (70-105); Magnesium 1.9 mg/dL (1.6-2.6); Osmolality,Calculated 293 (280-300); Phosphorous 3.3 mg/dL (2.7-4.5); Sodium 141 mEq/L (136-145); Total Protein 5.3 g/dL (6.4-8.9); eGFR For African Americans > 60 (> 60); eGFR For Non-African Americans > 60 (> 60)
[2018-09-04] MEDS ORDERED: 0.9 % Sodium Chloride 1,000 ML IVC SCH (08:45)
[2018-09-04] MEDS: Mesalamine 250 MG CAPSULE.ER PO SCH (09:49)
[2018-09-04] MEDS: MetroNIDAZOLE 500 MG/100 ML 500 MG/100 ML BAG IVPB SCH ×3 (09:49→23:35)
--- NOTE | 2018-09-04 10:43 | Internal Med Progress Note ---
Hospitalist Progress Note - Encounter Date of Encounter: 09/04/18 Time of Encounter: 08:00 - Subjective Interval History: No acute events overnight - Exam Vitals: Temp Pulse Resp BP Pulse Ox 97.9 F 71 16 110/59 96 09/04/18 10:00 09/04/18 10:00 09/04/18 10:00 09/04/18 10:00 09/04/18 10:00 Exam: General appearance: Present: A&O X 3, no acute distress Head exam: Present: normocephalic Respiratory exam: Present: CTAB. Absent: accessory muscle use, rales, rhonchi, wheezes Cardiovascular exam: Present: RRR, +S1, +S2. Absent: diastolic murmur, gallop, rubs, systolic murmur GI/Abdominal exam: Soft, NT, ND, +BS Extremities exam: Absent: pedal edema Neurological exam: Present: alert, oriented X3, no focal deficits. Absent: altered - Assessment and Plan (1) Small bowel obstruction Current Visit: Yes Status: Acute Assessment and Plan: Patient came in with nausea and vomiting with small bowel obstruction Improved with IV fluids and bowel rest. Continue cipro and flagyl for enteritis Started on clear liquids today. Surgery following and appreciate recs (2) Common bile duct dilatation Current Visit: Yes Status: Acute Assessment and Plan: MRCP showed biliary dilatataion with distal stricture. LFTs WNL Plan for outpatient ERCP (3) Ulcerative colitis Current Visit: Yes Status: Chronic Assessment and Plan: Continue mesalamine (4) DVT prophylaxis Current Visit: Yes Status: Acute Assessment and Plan: 1. Heparin SQ. - Time Spent with Patient Total time spent is greater than 50% in coordination of care (as documented) at patient's floor/unit and/or counseling patient: Internal Medicine: Result - Labs CBC & Chem 7: 09/04/18 07:03 09/04/18 07:03 Labs: Short CBC 09/04/18 Range/Units 07:03 WBC 7.4 (4.3-11.1) K/mcL Hgb 10.5 L D (11.5-15.4) g/dL Hct 33.5 L (35.3-44.9) % Plt Count 192 (140-400) K/mcL Neutrophils # 4.9 (1.6-8.9) K/mcL BMP 09/04/18 07:03 Sodium 141 Potassium 4.0 Chloride 108 H Carbon Dioxide 27 BUN 16 Creatinine 0.57 L Glucose 100 Calcium 8.7 Liver Function 09/04/18 Range/Units 07:03 Total Bilirubin 0.4 (0.3-1.0) mg/dL AST 12 L (13-39) Units/L ALT 23 (7-52) Units/L Alkaline Phosphatase 71 (34-104) Units/L Albumin 3.1 L (3.5-5.7) g/dL - ABG Interpretation ABG results: PT/INR, D-dimer PT 12.6 Seconds (9.4-12.1) H 09/04/18 07:03 - Impressions Impressions Abdomen MRI 09/03/18 08:10 IMPRESSION: 1. Cholelithiasis with no definite evidence of choledocholithiasis. 2. Dilated common bile duct and intrahepatic biliary ductal dilatation. No definite mass is identified on this noncontrast examination. Findings may be related to a distal stricture. Further evaluation with ERCP/EUS is recommended. 3. Mildly prominent fluid-filled loops of small bowel are noted similar to prior examination. No definite bowel obstruction. Findings may be related to enteritis. D/ / 09/03/2018 14:46:50 Virginia Mock MD / gretta Interpreting Provider: Virginia Mock MD Consult Discharge Plan - Plan Referrals: Ramón Hackett Jr, MD [Primary Care Provider] - (3) Ulcerative colitis Qualifiers: Ulcerative colitis location: other ulcerative colitis Digestive disease complication type: without complication Qualified Code(s): K51.80 - Other ulcerative colitis without complications
--- NOTE | 2018-09-04 14:27 | General Surgery Progress Note ---
Date of Encounter: 09/04/18 Time of Encounter: 14:00 Subjective Patient reports: feels better Narrative: General Surgery - Hospital Day #2 Patient feeling much improved. The patient remains afebrile, hemodynamically stable- current temp 97.9, pulse 71, respirations 16, blood pressure 105/57 to 110/59 Emesis noted last evening, estimated volume 400 mL. But since the patient is feeling significantly improved. Abdominal pain is diminished, nausea has resolved, the patient is passing flatus. Lungs: Clear; no abdominal pain with deep inspiration Abdomen: Soft, persistent tenderness detected in the right lower quadrant but no obvious intra-abdominal masses or fullness. No rebound. Bowel sounds active. Labs: WBC 7.4, hemoglobin has fallen to 10.5 with hematocrit 33.5 (on presentation H&H was 14.8/43.6 respectively) Differential remains within normal limits Electrolytes, BUN, creatinine within normal limits, chloride elevated, 108 LFTs remain within normal limits. MRCP: Scattered T2 hyperintense lesions throughout the liver likely representing cysts versus hemangiomas Cholelithiasis as evident on previous imaging (CT and ultrasound) no definite gallbladder wall thickening or pericholecystic fluid CBD is described as dilated up to 1.3 cm without an identified filling defect or mass. The dilated CBD may be due to a distal stricture which has not been definitively identified. Further evaluation with ERCP/EUS is suggested by the reading Radiologist Impression: Patient feeling much improved. Right lower quadrant abdominal pain diminished but not completely resolved. Patient is passing flatus. Review of records show the patient has a history of ulcerative colitis and on further discussion with the patient she has received long-term care by Dr Will Dunn, [facility]. The MRCP findings are noted - no obstruction is present and bilirubin remains within normal limits. The recommended evaluation with ERCP/EUS will be deferred to Dr. Dunn as an outpatient. This has been discussed with the patient and one of the patient's daughters. They agree with this recommendation. Plan: Allow clear liquids. Continue IV antibiotics (Cipro and metronidazole) Will continue surgical follow up Objective Vital Signs - Last 8 Hours Temp Pulse Resp BP Pulse Ox 09/04/18 10:00 97.9 F 71 16 110/59 96 09/04/18 08:45 96 09/04/18 06:58 98.7 F 69 15 105/57 96 Intake and Output 09/03/18 09/04/18 09/04/18 23:59 07:59 15:59 Intake Total 351 / 1451 1100 / 1100 0 / 1100 Output Total 800 / 800 Balance -449 / 651 1100 / 1100 0 / 1100 Intake: IV Fluids 351 / 1451 1100 / 1100 KCl 20 mEq in 0.9% Sodium 1000 / 1000 Chloride 20 meq In 1,000 ml @ 125 mls/hr IVC .Q8H NATHALY Rx#: [id number] Cipro Premix 400 MG/200 ML 400 200 / 200 mg In 200 ml @ 200 mls/hr IVPB Q12HR NATHALY Rx#:[id number] Flagyl Premix 500 MG/100 ML 500 100 / 200 100 / 100 mg In 100 ml @ 100 mls/hr IVPB Q8HR NATHALY Rx#:[id number] Phenergan 25 MG In 0.9 % Sodium 51 / 51 Chloride 50 ML @ 204 mls/hr IVPB Q6HR PRN Rx#:[id number] Oral 0 / 0 Output: Urine 400 / 400 Emesis 400 / 400 Other: Meal NPO Percent of Meal Consumed 0% Weight 59.4 kg Blood Glucose* 103 108 81 Patient Weight 09/04/18 23:59 Weight 59.4 kg - Labs 09/04/18 07:03 09/04/18 07:03 Diabetes panel 09/04/18 Range/Units 07:03 Sodium 141 (136-145) mEq/L Potassium 4.0 (3.5-5.1) mEq/L Chloride 108 H (98-107) mEq/L Carbon Dioxide 27 (23-29) mEq/L BUN 16 (8-23) mg/dL Creatinine 0.57 L (0.60-1.20) mg/dL Glucose 100 (70-105) mg/dL Calcium 8.7 (8.6-10.3) mg/dL AST 12 L (13-39) Units/L ALT 23 (7-52) Units/L Alkaline Phosphatase 71 (34-104) Units/L Albumin 3.1 L (3.5-5.7) g/dL Calcium panel 09/04/18 Range/Units 07:03 Calcium 8.7 (8.6-10.3) mg/dL Phosphorus 3.3 (2.7-4.5) mg/dL Albumin 3.1 L (3.5-5.7) g/dL Pituitary panel 09/04/18 Range/Units 07:03 Sodium 141 (136-145) mEq/L Potassium 4.0 (3.5-5.1) mEq/L Chloride 108 H (98-107) mEq/L Carbon Dioxide 27 (23-29) mEq/L BUN 16 (8-23) mg/dL Creatinine 0.57 L (0.60-1.20) mg/dL Glucose 100 (70-105) mg/dL Calcium 8.7 (8.6-10.3) mg/dL Adrenal panel 09/04/18 Range/Units 07:03 Sodium 141 (136-145) mEq/L Potassium 4.0 (3.5-5.1) mEq/L Chloride 108 H (98-107) mEq/L Carbon Dioxide 27 (23-29) mEq/L BUN 16 (8-23) mg/dL Creatinine 0.57 L (0.60-1.20) mg/dL Glucose 100 (70-105) mg/dL Calcium 8.7 (8.6-10.3) mg/dL Total Bilirubin 0.4 (0.3-1.0) mg/dL AST 12 L (13-39) Units/L ALT 23 (7-52) Units/L Alkaline Phosphatase 71 (34-104) Units/L Albumin 3.1 L (3.5-5.7) g/dL Consult Discharge Plan - Plan Referrals: Ramón Hackett Jr, MD [Primary Care Provider] -
[2018-09-05] MEDS: Promethazine 25 MG in 0.9 % Sodium Chloride 50 ML IVPB PRN (00:18)
[2018-09-05] MEDS: 0.9 % Sodium Chloride 1,000 ML IVC SCH ×3 (00:22→23:51)
[2018-09-05] MEDS: *HR* Heparin 5,000 UNIT/ML VIAL SQ SCH ×2 (05:20→16:06)
[2018-09-05 06:14] LABS: Basophils % 0.5 %; Eosinophils % 0.2 %; Hematocrit 36.9 % (35.3-44.9); Hemoglobin 11.8 g/dL (11.5-15.4); Immature Granulocytes % 0.5 % (0-4); Lymphocytes # 1.3 K/mcL (0.6-4.6); Lymphocytes % 20.5 %; Mean Corpuscular Hemoglobin 28.5 pg (28.0-33.3); Mean Corpuscular Volume 89.1 fL (83.0-100.0); Monocytes # 0.4 K/mcL (0.0-1.3); Monocytes % 6.9 %; Neutrophils # 4.5 K/mcL (1.6-8.9); Platelet Count 201 K/mcL (140-400); Red Blood Count 4.14 M/mcL (3.82-4.97); Red Cell Distribution Width 12.7 % (11.5-14.5); Segmented Neutrophils % 71.4 %; White Blood Count 6.4 K/mcL (4.3-11.1)
[2018-09-05 06:36] LABS: BUN/Creatinine Ratio 24 (6-26); Blood Urea Nitrogen 11 mg/dL (8-23); Calcium 8.4 mg/dL (8.6-10.3); Carbon Dioxide 24 mEq/L (23-29); Chloride 103 mEq/L (98-107); Glucose 81 mg/dL (70-105); Magnesium 1.7 mg/dL (1.6-2.6); Osmolality,Calculated 282 (280-300); Potassium 3.5 mEq/L (3.5-5.1); Sodium 137 mEq/L (136-145); eGFR For African Americans > 60 (> 60); eGFR For Non-African Americans > 60 (> 60)
--- NOTE | 2018-09-05 07:37 | Internal Med Progress Note ---
Hospitalist Progress Note - Encounter Date of Encounter: 09/05/18 Time of Encounter: 07:30 - Subjective Interval History: No acute events overnight - Exam Vitals: Temp Pulse Resp BP Pulse Ox 98.1 F 82 18 116/65 97 09/05/18 06:31 09/05/18 06:31 09/05/18 06:31 09/05/18 06:31 09/05/18 06:31 Exam: General appearance: Present: A&O X 3, no acute distress Head exam: Present: normocephalic Respiratory exam: Present: CTAB. Absent: accessory muscle use, rales, rhonchi, wheezes Cardiovascular exam: Present: RRR, +S1, +S2. Absent: diastolic murmur, gallop, rubs, systolic murmur GI/Abdominal exam: Soft, NT, ND, +BS Extremities exam: Absent: pedal edema Neurological exam: Present: alert, oriented X3, no focal deficits. Absent: altered - Assessment and Plan (1) Small bowel obstruction Current Visit: Yes Status: Acute Assessment and Plan: Patient came in with nausea and vomiting with small bowel obstruction Improved with IV fluids and bowel rest. Continue cipro and flagyl for enteritis Started on clear liquids today. Surgery following and appreciate recs Tolerated full liquids today but complained of persistent nausea,. Xray showed persistent SBO Will switch back to clear liquids (2) Common bile duct dilatation Current Visit: Yes Status: Acute Assessment and Plan: MRCP showed biliary dilatataion with distal stricture. LFTs WNL Plan for outpatient ERCP (3) Ulcerative colitis Current Visit: Yes Status: Chronic Assessment and Plan: Continue mesalamine (4) DVT prophylaxis Current Visit: Yes Status: Acute Assessment and Plan: 1. Heparin SQ. - Time Spent with Patient Total time spent is greater than 50% in coordination of care (as documented) at patient's floor/unit and/or counseling patient: Internal Medicine: Result - Labs CBC & Chem 7: 09/05/18 05:13 09/05/18 05:13 Labs: Short CBC 09/05/18 Range/Units 05:13 WBC 6.4 (4.3-11.1) K/mcL Hgb 11.8 (11.5-15.4) g/dL Hct 36.9 (35.3-44.9) % Plt Count 201 (140-400) K/mcL Neutrophils # 4.5 (1.6-8.9) K/mcL BMP 09/04/18 09/05/18 07:03 05:13 Sodium 141 137 Potassium 4.0 3.5 Chloride 108 H 103 Carbon Dioxide 27 24 BUN 16 11 Creatinine 0.57 L 0.45 L Glucose 100 81 Calcium 8.7 8.4 L Liver Function 09/04/18 Range/Units 07:03 Total Bilirubin 0.4 (0.3-1.0) mg/dL AST 12 L (13-39) Units/L ALT 23 (7-52) Units/L Alkaline Phosphatase 71 (34-104) Units/L Albumin 3.1 L (3.5-5.7) g/dL - ABG Interpretation ABG results: PT/INR, D-dimer PT 12.6 Seconds (9.4-12.1) H 09/04/18 07:03 Consult Discharge Plan - Plan Referrals: aRmón Hackett Jr, MD [Primary Care Provider] - (3) Ulcerative colitis Qualifiers: Ulcerative colitis location: other ulcerative colitis Digestive disease complication type: without complication Qualified Code(s): K51.80 - Other ulcerative colitis without complications
[2018-09-05] MEDS: MetroNIDAZOLE 500 MG/100 ML 500 MG/100 ML BAG IVPB SCH ×3 (07:49→23:54)
[2018-09-05] MEDS: Mesalamine 250 MG CAPSULE.ER PO SCH (07:50)
[2018-09-05] MEDS ORDERED: *HR* Promethazine 25 MG/ML VIAL IVP PRN (10:02)
[2018-09-05] MEDS ORDERED: Ondansetron 4 MG/2 ML VIAL IVP PRN (10:03)
--- NOTE | 2018-09-05 10:15 | General Surgery Progress Note ---
Date of Encounter: 09/05/18 Time of Encounter: 10:04 Subjective Patient reports: nausea Narrative: General Surgery - Hospital Day #3 patient c/o increased nausea since initiation of clear liquid diet No emesis, No increased abdominal pain. patient tolerated full liquid diet this AM but the recurrent nausea is a concern. The patient remains afebrile, currently 98.1 max 99.0 overnight; pulse regular, 82-91; respirations 14-18, unlabored; BP 116/65-122/83 Lungs: Clear, no increased abdominal pain with deep inspiration Abdomen: Minimal tenderness right lower quadrant. The tenderness continues to regress. Active bowel sounds. Patient still passing flatus but no BM. No rebound or peritoneal signs. No detected intra-abdominal or pelvic masses/fullness. Labs: WBC 6.4, hemoglobin 11.8, hematocrit 36.9; differential remains within normal limits/unremarkable Electrolytes also stable/WNL. Chloride corrected to 103. Impression: Distal enteritis involving mid ileum, SBO - improved with antibiotic therapy History of ulcerative colitis - suspect the enteritis may be a result of this inflammatory bowel disease. The patient is clinically improved but with initiation of diet the patient is complaining of recurrent nausea Plan: Check acute abdominal series Maintain clear liquid diet - delay advancing diet until symptoms regress Change dose and frequency of antiemetics - smaller doses, more frequently will have less sedating effect yet control nausea Continue surgical monitoring/surveillance Objective Vital Signs - Last 8 Hours Temp Pulse Resp BP Pulse Ox 09/05/18 06:31 98.1 F 82 18 116/65 97 09/05/18 04:22 98.7 F 91 14 122/73 94 Intake and Output 09/04/18 09/05/18 09/05/18 23:59 07:59 15:59 Intake Total 540 / 1940 1151 / 1151 Output Total 0 / 0 Balance 540 / 1940 1151 / 1151 Intake: IV Fluids 300 / 1700 1151 / 1151 0.9 % Sodium Chloride 1,000 ML 1000 / 1000 @ 100 mls/hr IVC .Q10H NATHALY Rx#: [id number] Cipro Premix 400 MG/200 ML 400 200 / 400 mg In 200 ml @ 200 mls/hr IVPB Q12HR NATHALY Rx#:[id number] Flagyl Premix 500 MG/100 ML 500 100 / 300 100 / 100 mg In 100 ml @ 100 mls/hr IVPB Q8HR NATHALY Rx#:[id number] Phenergan 25 MG In 0.9 % Sodium 51 / 51 Chloride 50 ML @ 204 mls/hr IVPB Q6HR PRN Rx#:[id number] Oral 240 / 240 0 / 0 Output: Urine 0 / 0 Other: Meal Dinner Percent of Meal Consumed 25% # Voids 2 Weight 61.3 kg Blood Glucose* 70 Patient Weight 09/05/18 23:59 Weight 61.3 kg - Labs 09/05/18 05:13 09/05/18 05:13 Diabetes panel 09/05/18 Range/Units 05:13 Sodium 137 (136-145) mEq/L Potassium 3.5 (3.5-5.1) mEq/L Chloride 103 (98-107) mEq/L Carbon Dioxide 24 (23-29) mEq/L BUN 11 (8-23) mg/dL Creatinine 0.45 L (0.60-1.20) mg/dL Glucose 81 (70-105) mg/dL Calcium 8.4 L (8.6-10.3) mg/dL Calcium panel 09/05/18 Range/Units 05:13 Calcium 8.4 L (8.6-10.3) mg/dL Phosphorus 3.0 (2.7-4.5) mg/dL Pituitary panel 09/05/18 Range/Units 05:13 Sodium 137 (136-145) mEq/L Potassium 3.5 (3.5-5.1) mEq/L Chloride 103 (98-107) mEq/L Carbon Dioxide 24 (23-29) mEq/L BUN 11 (8-23) mg/dL Creatinine 0.45 L (0.60-1.20) mg/dL Glucose 81 (70-105) mg/dL Calcium 8.4 L (8.6-10.3) mg/dL Adrenal panel 09/05/18 Range/Units 05:13 Sodium 137 (136-145) mEq/L Potassium 3.5 (3.5-5.1) mEq/L Chloride 103 (98-107) mEq/L Carbon Dioxide 24 (23-29) mEq/L BUN 11 (8-23) mg/dL Creatinine 0.45 L (0.60-1.20) mg/dL Glucose 81 (70-105) mg/dL Calcium 8.4 L (8.6-10.3) mg/dL Consult Discharge Plan - Plan Referrals: Ramón Hackett Jr, MD [Primary Care Provider] -
[2018-09-06 05:08] LABS: Basophils % 0.5 %; Eosinophils % 0.5 %; Hematocrit 34.7 % (35.3-44.9); Hemoglobin 11.3 g/dL (11.5-15.4); Immature Granulocytes % 0.2 % (0-4); Lymphocytes # 1.7 K/mcL (0.6-4.6); Lymphocytes % 39.2 %; Mean Corpuscular HGB Conc 32.6 g/dL (31.6-35.5); Mean Corpuscular Hemoglobin 28.8 pg (28.0-33.3); Mean Corpuscular Volume 88.5 fL (83.0-100.0); Mean Platelet Volume 11.3 fL (9.4-12.4); Monocytes # 0.4 K/mcL (0.0-1.3); Monocytes % 9.3 %; Neutrophils # 2.2 K/mcL (1.6-8.9); Platelet Count 186 K/mcL (140-400); Red Blood Count 3.92 M/mcL (3.82-4.97); Red Cell Distribution Width 12.7 % (11.5-14.5); Segmented Neutrophils % 50.3 %; White Blood Count 4.3 K/mcL (4.3-11.1)
[2018-09-06] MEDS: *HR* Heparin 5,000 UNIT/ML VIAL SQ SCH (05:08)
[2018-09-06 05:20] LABS: Blood Urea Nitrogen 8 mg/dL (8-23); Calcium 8.4 mg/dL (8.6-10.3); Carbon Dioxide 25 mEq/L (23-29); Chloride 107 mEq/L (98-107); Glucose 97 mg/dL (70-105); Magnesium 1.7 mg/dL (1.6-2.6); Osmolality,Calculated 286 (280-300); Phosphorous 3.3 mg/dL (2.7-4.5); Potassium 3.2 mEq/L (3.5-5.1); Sodium 139 mEq/L (136-145)
[2018-09-06 05:37] LABS: BUN/Creatinine Ratio 15 (6-26); eGFR For African Americans > 60 (> 60); eGFR For Non-African Americans > 60 (> 60)
--- NOTE | 2018-09-06 07:59 | Internal Med Progress Note ---
Hospitalist Progress Note - Encounter Date of Encounter: 09/06/18 Time of Encounter: 08:00 - Subjective Interval History: No acute events overnight - Exam Vitals: Temp Pulse Resp BP Pulse Ox 98.2 F 72 18 118/74 97 09/06/18 06:27 09/06/18 06:27 09/06/18 06:27 09/06/18 06:27 09/06/18 06:27 Exam: General appearance: Present: A&O X 3, no acute distress Head exam: Present: normocephalic Respiratory exam: Present: CTAB. Absent: accessory muscle use, rales, rhonchi, wheezes Cardiovascular exam: Present: RRR, +S1, +S2. Absent: diastolic murmur, gallop, rubs, systolic murmur GI/Abdominal exam: Soft, NT, ND, +BS Extremities exam: Absent: pedal edema Neurological exam: Present: alert, oriented X3, no focal deficits. Absent: altered - Assessment and Plan (1) Small bowel obstruction Current Visit: Yes Status: Acute Assessment and Plan: Patient came in with nausea and vomiting with small bowel obstruction Improved with IV fluids and bowel rest. Continue cipro and flagyl for enteritis Started on clear liquids today. Surgery following and appreciate recs Tolerating full liquids today and having bowel movements (2) Common bile duct dilatation Current Visit: Yes Status: Acute Assessment and Plan: MRCP showed biliary dilatataion with distal stricture. LFTs WNL Plan for outpatient ERCP (3) Ulcerative colitis Current Visit: Yes Status: Chronic Assessment and Plan: Continue mesalamine (4) DVT prophylaxis Current Visit: Yes Status: Acute Assessment and Plan: 1. Heparin SQ. - Time Spent with Patient Total time spent is greater than 50% in coordination of care (as documented) at patient's floor/unit and/or counseling patient: Internal Medicine: Result - Labs CBC & Chem 7: 09/06/18 04:27 09/06/18 04:27 Labs: Short CBC 09/06/18 Range/Units 04:27 WBC 4.3 (4.3-11.1) K/mcL Hgb 11.3 L (11.5-15.4) g/dL Hct 34.7 L (35.3-44.9) % Plt Count 186 (140-400) K/mcL Neutrophils # 2.2 (1.6-8.9) K/mcL BMP 09/06/18 04:27 Sodium 139 Potassium 3.2 L Chloride 107 Carbon Dioxide 25 BUN 8 Creatinine 0.54 L Glucose 97 Calcium 8.4 L - ABG Interpretation ABG results: PT/INR, D-dimer PT 12.6 Seconds (9.4-12.1) H 09/04/18 07:03 - Impressions Impressions Chest/Abdomen X-ray 09/05/18 10:03 IMPRESSION: 1. Persistent small bowel obstruction. 2. No free intraperitoneal air. 3. No acute cardiopulmonary process identified. D/ / Max Brand MD / Max Brand MD Interpreting Provider: Max Brand MD Consult Discharge Plan - Plan Referrals: Ramón Hackett Jr, MD [Primary Care Provider] - (3) Ulcerative colitis Qualifiers: Ulcerative colitis location: other ulcerative colitis Digestive disease complication type: without complication Qualified Code(s): K51.80 - Other ulcerative colitis without complications
[2018-09-06] MEDS: MetroNIDAZOLE 500 MG/100 ML 500 MG/100 ML BAG IVPB SCH (08:01)
[2018-09-06] MEDS: Mesalamine 250 MG CAPSULE.ER PO SCH (08:01)
[2018-09-06] MEDS: Potassium Chloride Elixir 20 MEQ/15 ML UDC PO SCH ×2 (08:12→11:23)
[2018-09-06 10:50] VITALS: BP 102/64
--- NOTE | 2018-09-06 12:37 | Discharge Summary ---
Date of Encounter: 09/06/18 Time of Encounter: 12:00 - Discharge Diagnosis (1) Small bowel obstruction Priority: Primary Status: Acute Assessment and Plan: 77 year old female who presents to the hospital with complaints of abdominal pain since yesterday afternoon. Pain started across her mid abdomen and radiated to her left flank area. It was intense and throbbing in nature. She associates nausea and vomiting. Because of the pain and intensity, she came to ER for evaluation. She underwent CT scan imaging which confirmed partial small bowel obstruction and evidence of enteritis. She was assessed with nausea and vomiting with small bowel obstruction which improved with IV fluids and bowel rest. She was on cipro and flagyl for the enteritis. Her diet was gradually advanced from clear liquid to full liquids which she tolerated. She was seen by surgery and cleared for discharge. She had a dilated common bile duct on MRCP for which she'll need an outpatient ERCP. She has been advised to follow up with her [facility] [employer] [facility] in [place]. She will complete a course of cipro and flagyl. 35 minutes was spent discharging this patient (2) Common bile duct dilatation Priority: Primary Status: Acute (3) Ulcerative colitis Priority: Primary Status: Chronic Qualifiers: Ulcerative colitis location: other ulcerative colitis Digestive disease complication type: without complication Qualified Code(s): K51.80 - Other ulcerative colitis without complications (4) DVT prophylaxis Priority: Primary Status: Acute Hospital course: Ms. Pollock is a 77 year old female - Time Spent with Patient Total time spent providing and/or coordinating discharge services: - Discharge Medications Prescriptions: New Ciprofloxacin [Cipro] 500 mg PO BID #14 tablet metroNIDAZOLE [Flagyl] 500 mg PO TID #21 tablet Continued Mesalamine [Apriso] 1.5 gm PO DAILY Fish Oil/Dha/Epa [Fish Oil 1,200 mg Fish Oil] 2 cap PO DAILY Aspirin [Lo-Dose Aspirin EC] 81 mg PO DAILY Multivitamin/Iron/Folic Acid [Centrum Women Tablet] 1 tab PO DAILY L. Acidophilus/Pectin, [place] [Acidophilus Capsule] 1 cap PO DAILY Acetaminophen [Tylenol] 650 mg PO Q6HR PRN tablet PRN Reason: Pain Home Medications: Aspirin [Lo-Dose Aspirin EC] 81 mg PO DAILY 11/23/17 [History] Fish Oil/Dha/Epa [Fish Oil 1,200 mg Fish Oil] 2 cap PO DAILY 11/23/17 [History] L. Acidophilus/Pectin, [place] [Acidophilus Capsule] 1 cap PO DAILY 11/23/17 [History] Mesalamine [Apriso] 1.5 gm PO DAILY 11/23/17 [History] Multivitamin/Iron/Folic Acid [Centrum Women Tablet] 1 tab PO DAILY 11/23/17 [History] Acetaminophen [Tylenol] 650 mg PO Q6HR PRN tablet 11/26/17 [Rx] Ciprofloxacin [Cipro] 500 mg PO BID #14 tablet 09/06/18 [Rx] metroNIDAZOLE [Flagyl] 500 mg PO TID #21 tablet 09/06/18 [Rx] Allergies/Adverse Reactions: Allergy/AdvReac Type Severity Reaction Status Date / Time No Known Allergies Allergy Verified 11/23/17 08:26 Date of admission: 09/03/18 12:48 Primary care physician: Ramón Hackett Jr, MD Consults: 09/03/18 04:23 Consult to Surgery [CONS] Stat Consulting Provider: Naebel Velazquez Reason for Consult: small bowel obstruction, pt known to you Time Notified: 04:24 Call Completed: Yes 09/03/18 08:09 Consult to Gastroenterology [CONS] Routine Consulting Provider: Gastroenterology Jazmyne Reason for Consult: intra and extra hepatic biliary dilatation Call Completed: No - Constitutional Vitals: Temp Pulse Resp BP Pulse Ox 98.0 F 51 18 102/64 95 09/06/18 10:48 09/06/18 10:48 09/06/18 10:48 09/06/18 10:48 09/06/18 10:48 General appearance: Present: cooperative, mild distress, A&O X 3, pleasant, answers questions appropriately Exam: General appearance: Present: A&O X 3, no acute distress Head exam: Present: normocephalic Respiratory exam: Present: CTAB. Absent: accessory muscle use, rales, rhonchi, wheezes Cardiovascular exam: Present: RRR, +S1, +S2. Absent: diastolic murmur, gallop, rubs, systolic murmur GI/Abdominal exam: Soft, NT, ND, +BS Extremities exam: Absent: pedal edema Neurological exam: Present: alert, oriented X3, no focal deficits. Absent: altered - Patient Status Disposition: Home, Self-Care Condition: Good - Discharge Instructions Follow Up With: Ramón Hackett Jr, MD [Primary Care Provider] -
== END 2018-09-06 13:31 | disposition home or self-care (01) | DRG 389 ==
LOC: EMEROOARM 21:04 → 3ANU 21:04
PROVIDERS: ADMIT Family Medicine; ATTEND Family Medicine